=== PATIENT | female | born 1940 | race Caucasian/White ===

== ENCOUNTER 2019-05-31 16:31 | Inpatient (IN) | payer MEDICARE, MEDICAID ==
[~2019-05-31] VITALS: Ht 152.4 cm; Wt 70.5 kg
[~2019-05-31 16:31] MED LIST: ACETAMINOPHEN325 MG PO; ARICEPT10 MG PO; ARICEPT5 MG PO; CARDIZEM60 MG PO; CELEXA20 MG PO; DESERYL100 MG PO; GLUCOPHAGE1000 MG PO; HUMALOG 30100 UNITS/ SC; JANUVIA50 MG PO; LOPRESSOR25 MG PO; MELATONIN 3 MG1 TAB PO; NOVOLOG100 U/M1 SQ; OYST-CAL-5001 TAB PO; Rocephin INJ IM; SEROQUEL25 MG PO; TUMS500 MG PO; VITAMIN B-121000 MCG PO; VITAMIN D31000 UNIT PO; XANAX0.5 MG PO; ZOCOR5 MG PO
--- NOTE | 2019-05-31 16:58 | NUR ---
ATTEMPTED TO CALL [facility] LAWRENCE. NO ANSWER. FACILITY STATED THAT PATIENT CONSENTED TO COME TO FACILITY. PATIENT WAS ASKED TO SIGN PAPERS AND STATED "NO. I AIN'T SIGNING NO PAPERS."
[2019-05-31] MEDS ORDERED: CALCIUM 500 +1 EAC3 (17:51)
[2019-05-31] MEDS ORDERED: CARDIZEM60 MG PO (17:52)
[2019-05-31] MEDS ORDERED: METOPROLOL TART25 MG (17:53)
[2019-05-31] MEDS ORDERED: JANUVIA50 MG (17:53)
[2019-05-31] MEDS ORDERED: GLUCOPHAGE1000 MG (17:53)
[2019-05-31] MEDS ORDERED: MULTI-DAY VITAM1 TAB (17:54)
[2019-05-31] MEDS ORDERED: NOVOLOG100 UNIT/1 (17:57)
[2019-05-31] MEDS ORDERED: REMERON15 MG (17:58)
[2019-05-31] MEDS ORDERED: SEROQUEL25 MG (17:58)
[2019-05-31] MEDS ORDERED: PAXIL CR12.5 MG (17:58)
[2019-05-31] MEDS ORDERED: ZOCOR10 MG (17:58)
[2019-05-31 18:00] VITALS: BP 160/82
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
[2019-05-31 20:17] VITALS: BP 149/74
--- NOTE | 2019-05-31 21:56 | NUR ---
PATIENT IS VERY CONFUSED, ONLY OREINTED TO SELF, CAN FOLLOW BASIC DIRECTIONS, CAN MAKE NEEDS KNOWN, COMPLIANT WITH MEDS. WILL FOLLOW POC
[2019-06-01 07:13] LABS: BASOPHILS 0.6 % (0-2); EOSINOPHILS 5.3 % (0-7); HEMATOCRIT 33.8 % (36.0-48.0); IMMATURE GRANULOCYTES 0.2 % (0-5); LYMPHOCYTES 32.1 % (15-50); MCH 30.1 pg (26.0-34.0); MCHC 32.5 g/dL (31.0-37.0); MCV 92.6 fL (80.0-100.0); MEAN PLATELET VOLUME 11.4 fL (7.4-10.4); MONOCYTES 10.7 % (2-11); NEUTROPHILS 51.1 % (40-80); PLATELET COUNT 146 10x3/uL (130-400); RBC 3.65 10x6/uL (4.00-5.40); RDW 12.7 % (11.5-14.5); WBC 5.1 10x3/uL (4.8-10.8)
[2019-06-01 07:30] VITALS: BP 118/47; BP 180/81
[2019-06-01 07:40] LABS: ALBUMIN 3.6 g/dL (3.4-5.0); ANION GAP 13.4 mmol/L (8-16); BILIRUBIN - TOTAL 0.26 mg/dL (0.2-1.3); CALCIUM 9.3 mg/dL (8.5-10.1); CARBON DIOXIDE 27.5 mmol/L (21.0-32.0); CHOL - HDL RATIO 2.6 ratio (2.3-4.1); CREATININE - SERUM 1.6 mg/dL (0.6-1.3); LDL-HDL RATIO 1.3 ratio (1.5-3.5); POTASSIUM - SERUM 4.9 mmol/L (3.5-5.1); PROTEIN - SERUM 7.5 g/dL (6.4-8.2); THYROID STIMULATING HORMONE 2.12 uIU/mL (0.36-3.74)
[2019-06-01 11:58] VITALS: Ht 152.4 cm; Wt 70.5 kg
--- NOTE | 2019-06-01 14:40 | NUR ---
PATIENT ALERT AND ORIENTED TO SELF ONLY. VERY [place]. CAN MAKE NEEDS KNOWN. CAN AMBULATE AT TIMES. PT COMPLIANT WITH MEDS, ASSESSMENTS AND VITALS. CONFUSION NOTED. NO INAPPROPRIATE BEHAVIOR NOTED. WILL CONT PLAN OF CARE.
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
[2019-06-01 20:00] VITALS: BP 175/74
[2019-06-02 08:11] VITALS: BP 160/62
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
--- NOTE | 2019-06-02 11:29 | NUR ---
B) The patient is awake and alert, she did not want to get up. Did have to call security and she was assisted with CPI skills. I) Provide prescribed meds. R) The patient is compliant with meds. She is in an irritable mood and saying "All people do is lie, the reason they lie is to get more money." Dr. Vee did come see her but she said "I didn't see a psychiatrist, I don't need a psychiatrist." P) Continue POC.
[2019-06-02 20:00] VITALS: BP 144/67
--- NOTE | 2019-06-02 20:40 | NUR ---
RECEIVED IN DAYROOM. SITTING IN A CHAIR WITH PEERS AT HER SIDE. CALM AND COOPERATIVE WITH CARE AND ASSESSMENT. REDIRECT AND REORIENT NEEDED. CONTINUES TO SIT CALMLY IN CHAIR. CONTINUE PLAN OF CARE
[2019-06-03 08:00] VITALS: BP 148/70
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
--- NOTE | 2019-06-03 15:00 | PN ---
PATIENT:HOMER VIDES MEDICAL RECORD: [id number] LOCATION:LAURYN Carmona ADMISSION DATE: 05/31/19 PROGRESS NOTE DATE OF SERVICE: 06/02/2019 SUBJECTIVE: The patient's case was discussed with staff. She has no new complaint. OBJECTIVE: The patient is sleeping and eating reasonably well. She has not been aggressive today. She is only oriented to person. ASSESSMENT: No change in diagnoses. PLAN: Current medicines have been reviewed. Long-term prognosis is guarded. TRANSINT:[id number] Voice Confirmation ID: [id number] DOCUMENT ID: [id number] ISABELLE DUCKWORTH MD at 1500 CC: [id number] DICTATION DATE: 06/02/19 1137 BUILDING EQUIPMENT OPERATOR: 06/02/19 1242 ADM IN [place] [id number] [place] [address]
[2019-06-03 20:20] VITALS: BP 120/59
--- NOTE | 2019-06-03 21:24 | NUR ---
RECEIVED IN DAYROOM. SITTING IN A WHELLCHAIR WITH PEERS AT HER SIDE. SOCIALIZING AT TIMES. CALM AND COOPERATIVE WITH CARE AND ASSESSMENT. REDIRECT AND REORIENT NEEDED. RESTING IN BED WITH EYES CLOSED AT THIS TIME. CONTINUE PLAN OF CARE
[2019-06-04 08:00] VITALS: BP 133/83
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
--- NOTE | 2019-06-04 11:53 | NUR ---
RECEIVED PT IN DINING ROOM FOR B'FAST, ALERT, CALM, COOPERATIVE, CONFUSED, BLUNTED, OCCASIONALLY CURSES AT STAFF. MEDS ADMIN PER ORDERS WITH COMPLETE MED COMPLIANCE NOTED. CONT POC DIRECTED, MONITORING FOR AGITATION AND AGGRESSION.
--- NOTE | 2019-06-04 11:55 | NUR ---
PATIENT AGITATED AT LUNCH TIME, SLINGING HER FOOD ACROSS THE ROOM. CONT TO CURSE UNTIL SHE WAS REMOVED FROM THE GROUP SETTING AND ASSISTED TO DAYROOM. PT CONT TO REFUSE MEAL AND CURSE AND RANT.
--- NOTE | 2019-06-04 13:03 | NUR ---
PATIENT'S ADVERSE BEHAVIOR CONTINUES, CURSING LOUDLY AT STAFF, QUITE AGITATED AND COMBATIVE, THREATENING TO "KOCK THE HELL" OUT OF STAFF. ATIVAN 0.5 MG AND HALDOL 2 MG ADMIN IM FOR ANXIETY. TONY WELL.
--- NOTE | 2019-06-04 16:57 | NUR ---
PATIENT QUITE DISRUPTIVE, CURSING, AGITATED, CURSING, THREW GLUCOMETER ONTO THE FLOOR WHILE NURSE WAS ATTEMPTING TO CHECK BLOOD SUGAR, REFUSING THE PROCEDURE. PT CONT TO CURSE AND RANT. ATIVAN 0.5 MG AND HALDOL 2 MG ADMIN IM FOR ANXIETY. TONY WELL.
--- NOTE | 2019-06-04 18:12 | NUR ---
CALM AND QUIET AT THIS TIME, SITTING IN W/C WATCHING TV.
--- NOTE | 2019-06-04 20:54 | NUR ---
RECEIVED IN DAYROOM. SITTING IN A WHEELCHAIR WITH PEERS AT HER SIDE. SOCIALIZING AT TIMES. CALM AND COOPERATIVE WITH CARE AND ASSESSMENT. ENCOURAGE TO EXPRESS NEEDS. REDIRECT AND REORIENT NEEDED. SITTING QUIETLY AT THIS TIME. CONTINUE PLAN OF CARE
[2019-06-04 21:49] VITALS: BP 138/75
--- NOTE | 2019-06-05 08:30 | NUR ---
PATIENT AWAKE AND ALERT. INCONTINENT OF URINE, VERY DIFFICULT TO REDIRECT WITH HER ADL'S AND CHANGING HER CLOTHES. ARGUMENTATIVE AND NONCOMPLIANT WITH STAFF. COMPLIANT WITH MEDS. CONTINUE POC.
[2019-06-05 10:00] VITALS: BP 172/67
--- NOTE | 2019-06-05 18:58 | PN ---
PATIENT:HOMER VIDES MEDICAL RECORD: [id number] LOCATION:LAURYN Carmona ADMISSION DATE: 05/31/19 PROGRESS NOTE DATE OF SERVICE: 06/04/2019 SUBJECTIVE: The patient's case was discussed with staff. She has no new complaint. OBJECTIVE: The patient denies intent to harm herself or others. She tolerates her medicines well. ASSESSMENT: Dementia. PLAN: The patient is yelling less. She is eating better. Current medicines will be maintained and I anticipate she can be transitioned out of the hospital and to a penitentiary soon. TRANSINT:[id number] Voice Confirmation ID: [id number] DOCUMENT ID: [id number] ISABELLE DUCKWORTH MD at 1858 CC: [id number] DICTATION DATE: 06/04/19 1039 DIRECTOR IT PROJECT: 06/04/19 1306 ADM IN [facility] [address] [place] [address]
[2019-06-05 21:10] VITALS: BP 166/60
--- NOTE | 2019-06-05 21:55 | NUR ---
PATIENT IS LYING IN BED TOOK MEDS WITHOUT DIFFICULY, PATIENT WAS TALKING ABOUT HER BOYFRIEND THAT FLIES AIRPLANES AND HE MAKES GOOD MONEY, HOWEVER RECEIVED IN REPORT THAT HER BEHAVIOR WAS BETTER TODAY THAN THE PREVIOUS DAYS. WILL FOLLOW POC
[2019-06-06 09:41] VITALS: BP 170/76
--- NOTE | 2019-06-06 10:30 | NUR ---
PATIENT IS PROPELLING SELF IN WHEELCHAIR. RESP EVEN AND NONLABORED. NO ACUTE DISTRESS NOTED. PT VERY ASSINIBOINE AND [place]. PT ALERT AND ORIENTED TO SELF ONLY. PT COMPLIANT WITH MEDICATIONS, ASSESSMENTS AND ADL'S. PT DOES NOT LIKE TO GET UP IN THE A.M. YELLS AT STAFF AT TIMES. WILL CONT PLAN OF CARE.
--- NOTE | 2019-06-06 10:54 | NUR ---
NUTRITION F/U TOLERATING DIABETIC DIET WITH GOOD INTAKE RECENT MEALS. WT HAS BEEN STABLE. WILL CONTINUE TO PROVIDE DIABETIC DIET, MONITOR PO INTAKE AND WT. RD FOLLOWING
--- NOTE | 2019-06-06 13:52 | PN ---
PATIENT:HOMER VIDES MEDICAL RECORD: [id number] LOCATION:LAURYN Carmona ADMISSION DATE: 05/31/19 PROGRESS NOTE DATE OF SERVICE: 06/05/2019 SUBJECTIVE: The patient's case was discussed with staff. She has no new complaint. OBJECTIVE: The patient is eating reasonably well and she is sleeping reasonably well. She is not yelling as much as she has been previously and is much more redirectable. ASSESSMENT: Dementia. PLAN: Current medicines have been reviewed and will be maintained. If this level of improvement continues, she can reasonably be transitioned out of the hospital soon. TRANSINT:[id number] Voice Confirmation ID: [id number] DOCUMENT ID: [id number] ISABELLE DUCKWORTH MD at 1352 CC: [id number] DICTATION DATE: 06/05/192007 MEDICAL ASSISTING PROGRAM DIRECTOR: 06/06/19 0116 ADM IN [place] [id number] [place] [address]
--- NOTE | 2019-06-06 19:25 | NUR ---
REC'D SITTING IN THE DAYROOM WITH HEAD LAYING ON TABLE. WHEN TRIED TO TALK WITH PATIENT SHE REPLIED "WHAT YOU WANT ME TO DO NOW? I'M TIRED. I'M DIABETIC." PATIENT HAD BEEN OBSERVED CALLING FOR "JIM." RELATES THAT IS HER BOYFRIEND AND THEY ARE GETTING . PARIENT IS LABILE. WILL SMILE AND TALK WITH STAFF THEN CAN BECOME ANGRY AND CURSE. ADMINSITER MEDS AND MONITOR COMPLIANCE. REORIENT NEEDED. MED COMPLIANT. REORIENTS HOWEVER IS FORGETFUL AND DOES NOT RETAIN INFORMATION.CONTINUE POC AND PROVIDE SAFE ENVIRONMENT.
[2019-06-06 20:05] VITALS: BP 136/68
--- NOTE | 2019-06-07 08:04 | NUR ---
B) The patient is still laying in bed, she doesn't like to get up and she fusses and curses a lot when she is awake. She can not hear at all and she does not read well enough to follow direction. She self propels in a w/c. I) Provide prescribed meds. R) Monitor her mood as she can be irritable and aggressive at times. P) Continue POC.
[2019-06-07 09:33] VITALS: BP 158/74
--- NOTE | 2019-06-07 15:52 | PN ---
PATIENT:HOMER VIDES MEDICAL RECORD: [id number] LOCATION:LAURYN Carmona ADMISSION DATE: 05/31/19 PROGRESS NOTE DATE OF SERVICE: 06/06/2019 SUBJECTIVE: The patient's case was discussed with staff. She has no new complaint. The patient denies intent to harm herself or others. She tolerates her medicines well. OBJECTIVE: The patient is in good behavioral control with poor insight about her condition. ASSESSMENT: No change in diagnoses. PLAN: Current medicines have been reviewed and will be maintained. Long-term prognosis is guarded. TRANSINT:[id number] Voice Confirmation ID: [id number] DOCUMENT ID: [id number] ISABELLE DUCKWORTH MD at 1552 CC: [id number] DICTATION DATE: 06/06/19 1543 SALES PLANNER: 06/06/19 1600 ADM IN [place] [address] [place] [id number]
[2019-06-07 20:58] VITALS: BP 138/70
--- NOTE | 2019-06-08 01:29 | NUR ---
B) Patient is alert and oriented to person, cooperative and friendly toward staff I) Administered scheduled medications as ordered, monitored for needs and for safety R) Mediation compliant, pleasant and friendly P) Continue plan of care.
[2019-06-08 09:19] VITALS: BP 105/63
--- NOTE | 2019-06-08 12:02 | PN ---
PATIENT:HOMER VIDES MEDICAL RECORD: [id number] LOCATION:LAURYN Carmona ADMISSION DATE: 05/31/19 PROGRESS NOTE DATE OF SERVICE: 06/07/2019 SUBJECTIVE: The patient's case was discussed with staff. She has no new complaint. OBJECTIVE: The patient denies intent to harm herself or others. She tolerates her medicines well. She is not yelling as much as she previously was. TRANSINT:[id number] Voice Confirmation ID: [id number] DOCUMENT ID: [id number] ISABELLE DUCKWORTH MD at 1202 CC: [id number] DICTATION DATE: 06/07/19 165 PALEONTOLOGY TEACHER: 06/07/192056 ADM IN [place] [id number] [place] [id number]
--- NOTE | 2019-06-08 17:06 | NUR ---
PATIENT STILL LYING IN BED, DOES NOT WANT TO GET UP AND OUT OF BED. FUSSES AND ARGUES WITH STAFF. WAKES UP IN GRUMPY MOOD. LATER SHE GETS IN BETTER ATTITUDE. COOPERATIVE WITH ASSESSMENT AND CARE. COMPLIANT WITH MEDS. REDIRECT AND REORIENT NEEDED.
[2019-06-08 20:00] VITALS: BP 136/75
--- NOTE | 2019-06-09 01:36 | NUR ---
B.) PT IS ALERT AND ORIENTED TO SELF AND SITUATION. ABLE TO MAKE NEEDS KNOWN. AMBULATES WITH WHEELCHAIR BUT CAN STAND TO TRANSFER. PT IS PLEASANT AND LAUGHING WITH STAFF AND PEERS. I.) PROVIDED PM MEDICATION. R.) COMPLIANT WITH ALL MEDICATIONS. P.) CONTINUE PLAN OF CARE
[2019-06-09 09:51] VITALS: BP 122/60
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
[2019-06-09 20:00] VITALS: BP 138/59
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
--- NOTE | 2019-06-10 00:13 | NUR ---
PT IS PHYSICALLY AGGRESSIVE WITH STAFF AND KICKING DOOR TO THE NURSES STATION. SHE IS YELLING OBSCENITIES AND CUSSING AT STAFF. PT RECIEVED 0.5MG OF ATIVAN IM. WILL CONTINUE TO MONITOR.
[2019-06-10 07:00] VITALS: BP 111/69
--- NOTE | 2019-06-10 15:51 | PN ---
PATIENT:HOMER VIDES MEDICAL RECORD: [id number] LOCATION:LAURYN Carmona ADMISSION DATE: 05/31/19 PROGRESS NOTE DATE OF SERVICE: 06/09/2019 SUBJECTIVE: The patient's case was discussed with staff. She has no new complaint. OBJECTIVE: The patient has been disruptive, agitated and combative with staff. She has very limited insight about her situation. She is only oriented to person. ASSESSMENT: No change in diagnoses. PLAN: The patient will be treated with Trilafon at a dose of 2 mg at bedtime. Her long-term prognosis is guarded. TRANSINT:[id number] Voice Confirmation ID: [id number] DOCUMENT ID: [id number] ISABELLE DUCKWORTH MD at 1551 CC: [id number] DICTATION DATE: 06/09/19 0941 CERTIFIED REGISTERED DENTAL ASSISTANT: 06/09/19 1515 ADM IN [place] [id number] [place] [id number]
--- NOTE | 2019-06-10 15:51 | PN ---
PATIENT:HOMER VIDES MEDICAL RECORD: [id number] LOCATION:LAURYN Carmona ADMISSION DATE: 05/31/19 PROGRESS NOTE DATE OF SERVICE: 06/08/2019 SUBJECTIVE: The patient's case was discussed with staff. She has no new complaint. OBJECTIVE: The patient is yelling less frequently. She has not been aggressive with staff except during personal care. She is eating reasonably well and she is compliant with medications. ASSESSMENT: Dementia. PLAN: Supportive and educational interventions were made. Current medications have been reviewed. Long-term prognosis is guarded. TRANSINT:[id number] Voice Confirmation ID: [id number] DOCUMENT ID: [id number] ISABELLE DUCKWORTH MD at 1551 CC: [id number] DICTATION DATE: 06/08/19 1246 FLOOR SWEEPER: 06/08/19 1453 ADM IN [place] [id number] [place] [address]
[2019-06-10 20:49] LABS: ALBUMIN 3.7 g/dL (3.4-5.0); ANION GAP 12.4 mmol/L (8-16); BILIRUBIN - TOTAL 0.21 mg/dL (0.2-1.3); CALCIUM 9.5 mg/dL (8.5-10.1); CARBON DIOXIDE 29.9 mmol/L (21.0-32.0); CREATININE - SERUM 1.7 mg/dL (0.6-1.3); POTASSIUM - SERUM 5.3 mmol/L (3.5-5.1); PROTEIN - SERUM 7.7 g/dL (6.4-8.2); THYROID STIMULATING HORMONE 1.63 uIU/mL (0.36-3.74)
--- NOTE | 2019-06-11 02:32 | NUR ---
REC'D IN DAYROOM. MOBILE IN WHEELCHAIR. UNCOOPERATIVE WITH STAFF WHEN TRYING TO GIVE HER A SHOWER. YELLING AND ARGUING WITH STAFF THAT SHE WANTS OUT OF HERE. RELATES SHE IS IN THE CRAZY HOUSE AND SHE WANTS OUT AND GO BACK TO HER [facility] TO JIM HER BOYFRIEND. RELATES THEY ARE GETTING AND HE FLIES AIRPLANES AND MAKES GOOD MONEY BUT SHE TOLD HIM SHE DIDN'T CARE ABOUT HIS MONEY. RED RASH NOTED TO HER LOWER ARMS AND HANDS. ADMINISTER MEDS PER ORDERS Q SHIFT AND MONITOR COMPLIANCE. REDIRECT FOR DISRUPTIVE BEHAVIOR. MED COMPLIANT. INCONSISTENT WITH FOLLOWING REDIRECTION. POOR IMPULSE CONTROL. DOES NOT LIKE TO FOLLOW UNIT MILEU. CONTINUE POC AND PROVIDE SAFE ENVIRONMENT.
[2019-06-11 10:37] VITALS: BP 127/77
--- NOTE | 2019-06-11 12:36 | PN ---
PATIENT:HOMER VIDES MEDICAL RECORD: [id number] LOCATION:LAURYN Carmona ADMISSION DATE: 05/31/19 PROGRESS NOTE DATE OF SERVICE: 06/10/2019 SUBJECTIVE: The patient's case was discussed with staff. She has no new complaint. OBJECTIVE: The patient is in reasonable behavioral control, but apparently has developed some tremors that is probably associated with the Trilafon, which I shall discontinue. In addition to this, she has been agitated at times and disruptive. When asked about this, she really cannot give any explanation. ASSESSMENT: No change in diagnoses. PLAN: Current medicines have been reviewed and will be maintained. Long-term prognosis is guarded. TRANSINT:[id number] Voice Confirmation ID: [id number] DOCUMENT ID: [id number] ISABELLE DUCKWORTH MD at 1236 CC: [id number] DICTATION DATE: 06/10/19 1649 CONTACT PRINTER DRY FILM: 06/10/19 1836 ADM IN [place] [id number] [place] [id number]
--- NOTE | 2019-06-11 17:00 | NUR ---
PATIENT IS ALERT AND ARGUMENTATIVE WITH STAFF AND PEERS. SHE CURSES A LOT. SHE IS INTRUSIVE AND GETS INTO EVERYTHING. MEDICATION COMPLIANT. WILL CONTINUE PLAN OF CARE.
[2019-06-11 22:45] VITALS: BP 127/53
--- NOTE | 2019-06-12 01:58 | NUR ---
B) Patient is alert and oriented to person and place, argument and restless at time, anxious and exit seeking I) Administered scheduled medications as ordered, PRN Ativan 0.5 mg IM given for anxiety R) Mediation compliant, sleeping quietly in her bed, P)Continue plan of care.
--- NOTE | 2019-06-12 09:00 | NUR ---
PATIENT IS AWAKE AND ALERT TO PERSON ONLY. NO AGGRESSIVE BEHAVIORS THIS MORNING. CALM AND COOPERATIVE WITH Staff AND ASSESSMENT. MEDICATION COMPLIANT. FALL PRECAUTIONS IN PLACE. WILL CONTINUE POC.
[2019-06-12 09:01] VITALS: BP 157/87
--- NOTE | 2019-06-12 15:30 | PN ---
PATIENT:HOMER VIDES MEDICAL RECORD: [id number] LOCATION:LAURYN Carmona ADMISSION DATE: 05/31/19 PROGRESS NOTE DATE OF SERVICE: 06/11/2019 SUBJECTIVE: The patient's case was discussed with staff. She has no new complaint. OBJECTIVE: The patient is in good behavioral control with limited insight about her condition. She tolerates her medicines well. ASSESSMENT: No change in diagnoses. PLAN: Current medicines have been reviewed and will be maintained. Long-term prognosis is guarded. TRANSINT:[id number] Voice Confirmation ID: [id number] DOCUMENT ID: [id number] ISABELLE DUCKWORTH MD at 1530 CC: [id number] DICTATION DATE: 06/11/19 1306 ENVIRONMENTAL HEALTH SAFETY MANAGER: 06/11/19 1316 ADM IN [place] [address] [place] [address]
[2019-06-12 19:42] VITALS: BP 132/60
--- NOTE | 2019-06-12 21:00 | NUR ---
PT COMBATIVE, HITTING STAFF AND PEER. SHE IS THROWING HER SHOES AND YELLING AT STAFF. GAVE PRN OF 0.5 MG ATIVAN IM WILL CONTINUE TO MONITOR.
--- NOTE | 2019-06-12 21:47 | NUR ---
PT APPEARS LESS ANXIOUS. WILL CONTINUE TO MONITOR.
[2019-06-13 08:32] VITALS: BP 146/62
--- NOTE | 2019-06-13 11:02 | NUR ---
NUTRITION F/U 1# WT GAIN NOTED. PT IS CONSUMING 85% OF RECENT DIABETIC MEALS. WILL CONTINUE TO PROVIDE DIET, MONITOR PO INTAKE AND WT. RD FOLLOWING
--- NOTE | 2019-06-13 13:34 | PN ---
PATIENT:HOMER VIDES MEDICAL RECORD: [id number] LOCATION:LAURYN DacostaDenys112 ADMISSION DATE: 05/31/19 PROGRESS NOTE DATE OF SERVICE: 06/12/2019 SUBJECTIVE: The patient's case was discussed with staff. She has no new complaint. OBJECTIVE: The patient is very disorganized. She required p.r.n. medication for agitation yesterday. It was somewhat effective. ASSESSMENT: No change in diagnoses. PLAN: Current medicines have been reviewed and will be maintained. Long-term prognosis is guarded. TRANSINT:[id number] Voice Confirmation ID: [id number] DOCUMENT ID: [id number] ISABELLE DUCKWORTH MD at 1334 CC: [id number] DICTATION DATE: 06/12/19 1650 CURATOR OF COLLECTIONS: 06/13/19 0019 ADM IN [facility] [address] [place] [address]
--- NOTE | 2019-06-13 13:34 | PN ---
PATIENT:HOMER VIDES MEDICAL RECORD: [id number] LOCATION:LAURYN Carmona ADMISSION DATE: 05/31/19 PROGRESS NOTE DATE OF SERVICE: 06/12/2019 SUBJECTIVE: The patient's case was discussed with staff. She has no new complaint. OBJECTIVE: The patient denies intent to harm herself or others. She is tolerating her medicines well. ASSESSMENT: Dementia. PLAN: Current medicines have been reviewed and will be maintained. Long-term prognosis is guarded. TRANSINT:[id number] Voice Confirmation ID: [id number] DOCUMENT ID: [id number] ISABELLE DUCKWORTH MD at 1334 CC: [id number] DICTATION DATE: 06/12/19 1652 DIRECTOR INSURANCE: 06/13/19 0024 ADM IN [place] [id number] [place] [address]
--- NOTE | 2019-06-13 19:13 | NUR ---
PATIENT CONTS TO YELL OUT AND BE VERBALLY AGGRESIVE WITH STAFF. NOT COMBATIVE. PT CONTINUES TO SEEK MALE ATTENTION. STAFF KEEPS HER WITH MALE STAFF. PT CONTS TO HAVE INCONTIENT EPISODES.
[2019-06-13 20:20] VITALS: BP 130/65
--- NOTE | 2019-06-14 02:46 | NUR ---
B.) PT IS ALERT AND ORIENTED TO SELF ONLY. PT IS CALM AND COOPERATIVE. PT IS ABLE TO MAKE NEEDS KNOWN. SHE YELLS OUT OCCASIONALLY WHEN SHE IS SEEKING ATTENTION. I.) PROVIDED PM MEDICATIONS. REDIRECT OFTEN. R.) COMPLIANT WITH ALL MEDICATIONS. PT VERBALIZES UNDERSTANDING. P.) CONTINUE PLAN OF CARE
--- NOTE | 2019-06-14 09:00 | NUR ---
PATIENT REFUSED TO GET OUT OF BED. STAFF 2X TO GET UP AFTER MULTIPLE ATTEMPTS. PATIENT IS VERY [place]. PATIENT COMPLIANT WITH ASSESSMENTS, VITALS AND MEDICATIONS. PT IS INCONTIENT AT TIMES. ATTEMPTS TO BE COMBATIVE WITH STAFF AT [place]. CHAIR ALARM IN PLACE AND ACTIVE.
[2019-06-14 09:36] VITALS: BP 120/64
[2019-06-14 15:08] LABS: ANION GAP 14.7 mmol/L (8-16); CALCIUM 9.4 mg/dL (8.5-10.1); CARBON DIOXIDE 28.5 mmol/L (21.0-32.0); CREATININE - SERUM 2.4 mg/dL (0.6-1.3)
[2019-06-14 15:11] LABS: POTASSIUM - SERUM 6.2 mmol/L (3.5-5.1)
--- NOTE | 2019-06-14 15:15 | NUR ---
LAB CALLED WITH A CRITICAL LAB; POTASSIUM 6.2. NOTIFIED LISSETH BELTRE APN. NEW ORDER: KAYEXELATE 30 GM ONE TIME ORDER. D/C: CELEXA 10 MG, DESERYL 100 MG, METFORMIN 1,000 MG, JANUVIA 50 MG. PATIENT TOLERATED WELL. PATIENT LAB BLOOD SUGAR 349 MG/DL. 8 UNITS OF UNITS GIVEN. WILL CONT TO MONITOR BLOOD SUGAR.
--- NOTE | 2019-06-14 16:01 | NUR ---
BLOOD SUGAR: 242 MG/DL. PATIENT RECIEVED INSULIN PRIOR TO 2 BLOOD SUGAR CHECK.
--- NOTE | 2019-06-14 17:48 | NUR ---
DR. ARAUJO CALLED FOR A ONE TIME ORDER FOR TRAZADONE 100 MG PO HS. ORDER IN COMPUTER FOR THIS P.M.
--- NOTE | 2019-06-14 20:20 | NUR ---
PATIENT IS CONFUSED, DEFIANT, COMBATIVE AND DEMANDING AT TIMES, SEXUALLY INAPPROPRIATE, COMPLIANT WITH MEDS. NEEDS HELP WIHT ADL'S. WILL FOLLOW POC
[2019-06-14 21:26] VITALS: BP 127/39
[2019-06-15 06:47] LABS: ANION GAP 11.4 mmol/L (8-16); CALCIUM 9.4 mg/dL (8.5-10.1); CARBON DIOXIDE 28.7 mmol/L (21.0-32.0)
[2019-06-15 06:48] LABS: POTASSIUM - SERUM 5.1 mmol/L (3.5-5.1)
--- NOTE | 2019-06-15 07:48 | NUR ---
B) The patient does not like to get up in the am and she gives the techs a hard time and curses and them and calls them expletive names that are inappropriate. She is UNGA and she is extremely difficult to redirect. She needs assistance with toileting and dressing. She self propels in a w/c and she does take her pills whole usually, but she needs a lot of prompting. She continues to talk about her boyfriend and she says "I'm not going to find a man here, they're all nuts." But she does try to flirt and talk with all of the men and sometimes she gets agitated with them because she can not hear them. I) Provide prescribed meds. R) The patient needs much redirection and monitoring d/t her confusion and irritability. P) Continue POC.
[2019-06-15 16:39] LABS: APPEARANCE CLOUDY (CLEAR); COLOR YELLOW (YELLOW); NITRITE POSITIVE (NEGATIVE); PROTEIN TRACE mg/dL (NEGATIVE)
[2019-06-15 16:40] LABS: BILIRUBIN NEGATIVE (NEGATIVE); GLUCOSE 1000 mg/dL (NEGATIVE); KETONE NEGATIVE (NEGATIVE); UROBILINOGEN NORMAL (NORMAL)
--- NOTE | 2019-06-15 16:42 | NUR ---
PATIENT CONTS TO PULL SHIRT UP IN FRONT OF MALE PATIENTS. STAFF REDIRECTS MULTIPLE TIMES.
[2019-06-15 17:02] LABS: RED CELLS - URINE 0-5 /hpf (0-5); WHITE CELLS - URINE >50 /hpf (NEGATIVE)
[2019-06-15 17:03] LABS: BACTERIA MANY /hpf (NEGATIVE)
--- NOTE | 2019-06-15 17:30 | NUR ---
PATIENT URINE COLLECTED THIS SHIFT. 432 MG/DL BLOOD SUGAR. CALLED JUVENCIO MCKENNA CALLBACK. CRITICAL LAB SHEET COMPLETED AND ORDER IN COMPUTER FOR STAT LAB. 12 UNITS OF INSULIN GIVEN.
--- NOTE | 2019-06-15 18:13 | NUR ---
LAB CALLED TO REPORT THAT PATIENT BLOOD GLUCOSE WAS: 455 MG/DL. AWAITING CALLBACK FROM Rox SKAGGS APN. WAS COVERED BY INSULIN. WILL RECHECK.
--- NOTE | 2019-06-15 19:02 | NUR ---
SPOKE WITH Rox SKAGGS APN IN REGARDS TO CRITICAL LABS GLUCOSE. REPORTED URINE LAB WELL. NEW ORDER: 1/2 NS AT 125/HR, CBC ADDED TO AM LAB, ROCEPHIN 1 GM IM QD X 3 DAYS. WILL PASS TO ONCOMING SHIFT.
[2019-06-15 19:05] VITALS: BP 174/70
[2019-06-15 20:36] VITALS: BP 130/56
--- NOTE | 2019-06-15 21:40 | NUR ---
PATIENT IS CONFUSED, ARGUMENTATIVE, DEMANDING AND LABILE. COMPLIANT WITH MEDS. CAN MAKE NEEDS KNOWN. WILL FOLLOW POC
[2019-06-16 06:28] LABS: BASOPHILS 0.3 % (0-2); EOSINOPHILS 4.5 % (0-7); HEMATOCRIT 33.4 % (36.0-48.0); HEMOGLOBIN 10.9 g/dL (12-16); IMMATURE GRANULOCYTES 0.2 % (0-5); LYMPHOCYTES 23.9 % (15-50); MCH 30.1 pg (26.0-34.0); MCHC 32.6 g/dL (31.0-37.0); MCV 92.3 fL (80.0-100.0); MEAN PLATELET VOLUME 11.5 fL (7.4-10.4); NEUTROPHILS 60.1 % (40-80); PLATELET COUNT 162 10x3/uL (130-400); RBC 3.62 10x6/uL (4.00-5.40); RDW 12.6 % (11.5-14.5); WBC 6.2 10x3/uL (4.8-10.8)
[2019-06-16 07:20] LABS: ANION GAP 12.9 mmol/L (8-16); CALCIUM 9.3 mg/dL (8.5-10.1); CARBON DIOXIDE 28.1 mmol/L (21.0-32.0); CREATININE - SERUM 2.2 mg/dL (0.6-1.3)
[2019-06-16 08:00] VITALS: BP 127/56
--- NOTE | 2019-06-16 09:00 | NUR ---
PATIENT SITTING AT TABLE EATING BREAKFAST. NO ACUTE DISTRESS NOTED. PT CONFUSED AND ORIENTED TO SELF ONLY. VERY HARD OF HEARING. PT HAS IV TO RIGHT AC WITH 1/2 NS AT 125 ML. PT INTIAL DOSE OF RECEPHIN 1 GM IM FOR UTI. PT TOLERATING WELL. PT COMPLIANT WITH MEDS, ASSESSMENTS AND VITALS. 1X ASSIST WITH ADLS. CHAIR ALARM IN PLACE AND ACTIVE. WILL CONT PLAN OF CARE.
--- NOTE | 2019-06-16 15:30 | NUR ---
NURSE TOOK PATIENT IV OUT IN THE RIGHT AC. 22 G IV PUT IN THE LEFT FOREARM. PT TOLERATED WELL. IV FLUIDS RESTARTED. PT COMPLIES WITH IV AND TAKES MEDICATIONS. CATH REMOVED IS INTACT AND WHOLE.
--- NOTE | 2019-06-16 20:04 | NUR ---
RECEIVED IN DAYROOM BATHROOM. GETTING READY TO GET A SHOWER. CONFUSED BUT COOPERATIVE WITH CARE AND ASSESSMENT. IV INFUSING. REDIRECT AND REORIENT NEEDED. [facility] HAS HER IN SHOWER AT THIS TIME. CONTINUE PLAN OF CARE
[2019-06-16 22:48] VITALS: BP 145/63
[2019-06-17 08:00] VITALS: BP 153/47
[2019-06-17 08:15] LABS: ANION GAP 11.8 mmol/L (8-16); CALCIUM 8.9 mg/dL (8.5-10.1); CARBON DIOXIDE 28.5 mmol/L (21.0-32.0); POTASSIUM - SERUM 5.3 mmol/L (3.5-5.1)
[2019-06-17 08:16] LABS: CREATININE - SERUM 1.6 mg/dL (0.6-1.3)
--- NOTE | 2019-06-17 17:29 | NUR ---
RECEIVED PT IN DINING ROOM FOR B'FAST, ALERT, CALM, COOPERATIVE. MEDS ADMIN PER ORDERS WITH COMPLETE MED COMPLIANCE NOTED. PER INSTRUCTIONS FROM Rox SKAGGS APN, IV FLUIDS CAN BE RESERVED FOR BEDTIME HOURS IF PATIENT PERSISTS IN BECOMING AGITATED ABOUT THE TUBING, PUMP, ETC DUE TO HER MOBILE ACTIVITY. CONT POC DIRECTED.
[2019-06-17 20:23] VITALS: BP 183/84
--- NOTE | 2019-06-17 21:55 | NUR ---
RECEIVED IN DAYROOM. MOVING ABOUT IN WHEELCHAIR., SOCIALIZING WITH STAFF AND PEERS AT TIMES. REDIRECT AND REORIENT NEEDED. CONTINUES TO MOVE ABOUT IN HER WHEELCHAIR. CONTINUE PLAN OF CARE
[2019-06-18 06:55] LABS: ANION GAP 11.6 mmol/L (8-16); CARBON DIOXIDE 29.5 mmol/L (21.0-32.0); CREATININE - SERUM 1.8 mg/dL (0.6-1.3); POTASSIUM - SERUM 5.1 mmol/L (3.5-5.1)
[2019-06-18 08:00] VITALS: BP 114/63
--- NOTE | 2019-06-18 10:00 | NUR ---
RECEIVED PATIENT IN DINING ROOM FOR B'FAST, ALERT, RESTLESS, SEXUALLY INAPPROPRIATE WITH MALES, ARGUMENTATIVE WITH MEDS, APPETITE GOOD. CURSES QUITE OFTEN, AMBULATES IN W/C, VERBALLY AGGRESSIVE WITH CARE.
[2019-06-18 20:10] VITALS: BP 156/51
--- NOTE | 2019-06-18 20:35 | NUR ---
RECEIVED IN DAYROOM. SITTING IN WHEELCHAIR SOCIALIZING WITH A PEER. CALM AND COOPERAIVE WITH CARE AND ASSESSMENT. NOT BEING SEXUALLY INAPPROPRIATE THE PM. REDIRECT AND REORIENT THIS EVENING. CONTINUES TO BE SOCIAL WITH PEERS. CONTINUE PLAN OF CARE
--- NOTE | 2019-06-19 03:20 | NUR ---
IV OUT. NEW IV STARTED X 1 ATTEMPT. LEFT FOREARM. / NS @ 125 STARTED BACK.
[2019-06-19 07:05] LABS: BASOPHILS 0.8 % (0-2); EOSINOPHILS 5.8 % (0-7); HEMATOCRIT 29.6 % (36.0-48.0); HEMOGLOBIN 9.7 g/dL (12-16); IMMATURE GRANULOCYTES 0.4 % (0-5); LYMPHOCYTES 34.4 % (15-50); MCH 30.5 pg (26.0-34.0); MCHC 32.8 g/dL (31.0-37.0); MCV 93.1 fL (80.0-100.0); MEAN PLATELET VOLUME 11.7 fL (7.4-10.4); MONOCYTES 10.7 % (2-11); NEUTROPHILS 47.9 % (40-80); PLATELET COUNT 174 10x3/uL (130-400); RBC 3.18 10x6/uL (4.00-5.40); RDW 13.3 % (11.5-14.5); WBC 5.2 10x3/uL (4.8-10.8)
[2019-06-19 07:25] LABS: ANION GAP 13.2 mmol/L (8-16); CALCIUM 9.4 mg/dL (8.5-10.1); CARBON DIOXIDE 27.2 mmol/L (21.0-32.0); CREATININE - SERUM 1.7 mg/dL (0.6-1.3); POTASSIUM - SERUM 5.4 mmol/L (3.5-5.1)
--- NOTE | 2019-06-19 17:00 | NUR ---
RENAL ULTRASOUND DONE IN PATIENTS ROOM.
--- NOTE | 2019-06-19 17:08 | NUR ---
RECEIVED PT IN DINING ROOM FOR B'FAST, ALERT, CALM, SEXUALLY INAPPROPRIATE, MEDS ADMIN PER ORDERS WTIH COMPLETE MED COMPLIANCE NOTED. CONT POC DIRECTED.
[2019-06-19 20:55] VITALS: BP 142/67
--- NOTE | 2019-06-20 00:05 | NUR ---
REC'D MOBILE IN WHEELCHAIR IN THE DAYROOM. LABILE AND WILL TALK AT TIMES BUT THEN WILL YELL AND CURSE AT STAFF. SEXUALLY INAPPROPRIATE. OBSERVED TAKING A PEERS HAND AND KISSING IT. PREOCCUPIED WITH FETTING OUT OF HERE. BECOMES ANGRY WHEN TOLD SHE HAS TO BE CLEARED BY THE DOCTOR BEFORE SHE CAN BE DISCHARGED. ADMINISTER MEDS PER ORDERS Q SHIFT AND MONITOR COMPLIANCE. REDIRECT FOR INAPPROPRIATE BEHAVIOR. MED COMPLIANT BUT WILL COMPLAIN. POOR REDIRECTION AEB CURSING STAFF AND TRYING TO GET BY STAFF IN HER WHEELCHAIR TO GET TO A MALE PEER. IV INITIATED AT 125CC/HR PER ORDERS TO RUN AT NIGHT VIA LEFT FOREARM SALINE LOCK. CONTINUE POC AND PROVIDE SAFE ENVIRONMENT.
[2019-06-20 08:05] LABS: ANION GAP 14.7 mmol/L (8-16); CALCIUM 9.2 mg/dL (8.5-10.1); CARBON DIOXIDE 26.5 mmol/L (21.0-32.0); CREATININE - SERUM 1.7 mg/dL (0.6-1.3); POTASSIUM - SERUM 5.2 mmol/L (3.5-5.1)
--- NOTE | 2019-06-20 09:20 | NUR ---
PATIENT WAS VERY SEXUALLY INAPPROPRIATE WITH STAFF AND PEERS. PT KEPT ASKING FOR HER SHOES WHEN NOT MAKING COMPLIANTS TO THE GENTLEMAN. ATTEMPTED TO REDIRECT AND PT BECAME ANGRY. SHE STARTED JERKING AWAY FROM STAFF YELLING OUT" THIS IS SOME BULLSHIT! WE WERE JUST TALKING." HAVE TO SEPARATE MUTIPLE TIMES. PT IS VERY LABILE. COMPLIANT WIHT MEDS, VITALS AND ASSESSMENT. PT CONT ON IM ANTIBIOTIC FOR UTI. TOLERATING WELL. NO S/SX NOTED. ATIVAN 0.5 MG PO GIVEN PER DR. DUCKWORTH ORDER.
[2019-06-20 09:26] VITALS: BP 141/66
--- NOTE | 2019-06-20 10:20 | NUR ---
PRN EFFECTIVE AT THIS TIME. PT IS VERY FRIENDLY WITH STAFF AND PEERS. MAKING JOKES AT THIS TIME.
--- NOTE | 2019-06-20 10:48 | NUR ---
NUTRITION F//U PT TOLERATING ADA DIET WITH 100% INTAKE RECENT MEALS. ~ 3# WT GAIN SINCE ADMIT. WILL CONTINUE TO PROVIDE DIET, MONITOR PO INTAKE AND WT. RD FOLLOWING
[2019-06-20 20:01] VITALS: BP 148/66
--- NOTE | 2019-06-20 22:31 | NUR ---
REC'D PT MOBILE ON THE UNIT IN HER WHEELCHAIR. INTRUSSIVE AND SEXUALLY INPPROPRIATE. DOES NOT WANT TO FOLLOW UNIT MILEU AND BECOMES ANGRY WHEN DIRECTED BY STAFF. NO INSIGHT INTO THE REASON FOR HOSPITALIZATION. PATIENT RELATED TO A MALE PEER THAT SHE IS GONG TO TWO MEN TONIGHT. ADMINISTER MEDS PER ORDERS Q SHIFT AND MONITOR COMPLIANCE. ADMINISTER MEDS Q SHIFT PER ORDERS AND MONITOR COMPLIANCE. REDIRECT FOR SEXUALLY INAPPROPRIATE BEHAVIOR AND INTRUSSIVENESS. MED COMPLIANT. POOR REDIRECTION AND BECOMES ANGRY CURSING AND YELLING WITH NO INSIGHT FOR REASONING,
--- NOTE | 2019-06-21 07:33 | NUR ---
B) The patient is awake and she is loud, yelling and cursing. She does not like to get up and now she is mumbling profanities under her breath as she self propels in the hallway. I) Provide prescribed meds. R) The patient is compliant with meds. She needs much redirection for appropriate behavior but it is difficult because she is unable to hear even if staff speak loudly in her ear as she requests. P) Continue POC.
[2019-06-21 08:30] VITALS: BP 145/79
--- NOTE | 2019-06-21 11:30 | NUR ---
Checked the patient's fsbs it is 558, called Dr. Alas and let her be aware, told I would recheck it and call lab for a stat glucose. She said "Provide the insulin as indicated and I will address it further when I come in shortly." The patient is not having any symptoms but she says she is really tired. Rechecked her fsbs and it is 522, provided 12 units Humalog.
--- NOTE | 2019-06-21 12:30 | NUR ---
RECIEVED CRITICAL RESULT FROM LAB. WILL NOTIFTY DOCTOR.
--- NOTE | 2019-06-21 17:01 | NUR ---
CONTACTED DR. LEON ABOUT PATIENT'S FSBS, SHE WANTS US TO CHECK HER FSBS Q 4HOURS. ORDERS IN THE COMPUTER.
[2019-06-21 20:00] VITALS: BP 126/60
--- NOTE | 2019-06-21 23:47 | NUR ---
B.) PT IS ALERT AND ORIENTED TO SELF AND SITUATION. SHE IS RECIEVED IN HER WHEELCHAIR. SHE IS SOCIALIZING WITH PEERS AND IS EAGER TO GO TO BED. SHE IS AT TIME DIFFICULT TO REDIRECT. I.) PROVIDED PM MEDICATIONS. R.) COMPLIANT WITH ALL MEDICATIONS. P.) CONTINUE PLAN OF CARE
--- NOTE | 2019-06-22 07:26 | NUR ---
B) The patient awakens and she is fiesty. She screams and yells. She is MENTASTA and she does not understand what staff tell her. She self propels in her w/c. Currently she is talking to a male patient that is not interested in the conversation. She is unable to hear a word he says. I) Provide prescribed meds. R) The patient is compliant with meds. P) Continue POC.
[2019-06-22 08:00] VITALS: BP 118/58
--- NOTE | 2019-06-22 11:50 | NUR ---
The patient's sister called and checked on her. Explained to her that she is getting better, but that the DrDenys is still adjusting meds and that she will need to be here a few more days. The sister vwerbalized understanding.
--- NOTE | 2019-06-22 17:21 | NUR ---
The patient's blood sugar is 150 at this time, no coverage required.
[2019-06-22 21:05] VITALS: BP 138/70
--- NOTE | 2019-06-22 21:56 | NUR ---
B.) PT IS ALERT AND ORIENTED TO SELF ONLY. SHE HAS POOR INSIGHT INTO HER SITUATION. SHE IS RECIEVED IN HER WHEELCHAIR AND SOCIALIZING. SHE IS COOPERATIVE BUT CAN OCCASIONALLY BE DEMANDING. FSBS 468. I.) REDIRECT OFTEN. PROVIDED PM MEDICATIONS. RECHECKED AND NOTIFIED TANGUNAN. Whitaker) SHE IS OFTEN EASY TO REDIRECT. COMPLIANT WITH ALL MEDICATIONS. GAVE 17 UNITS OF INSULIN IN HER RLQ OF HER ABD. P.) CONTINUE PLAN OF CARE
--- NOTE | 2019-06-23 04:00 | NUR ---
PT IV WAS LEAKING IV FLUID FROM SITE. REMOVED IV WILL CONTINUE TO MONITOR.
[2019-06-23 08:00] VITALS: BP 111/66
--- NOTE | 2019-06-23 17:29 | NUR ---
RECEIVED PATIENT IN DINING ROOM FOR B'FAST, ALERT, CALM, COOPERATIVE, SEXUALLY INAPPROPRIATE AT TIMES. COMPLIANT WITH MEDS. FREQUENTLY CURSES ALOUD AND YELLS. CONT POC DIRECTED.
--- NOTE | 2019-06-23 19:22 | NUR ---
RECEIVED IN DAYROOM. MOVING ABOUT IN HER WHEELCHAIR SOCIALIZING WITH PEERS. CALM AND COOPERATIVE WITH CARE AND ASSESSMENT. NO SIGNS OF SEXUALLY INAPPROPRIATE BEHAVIOR. REDIRECT AND REORIENT NEEDED. CONTINUES TO MOVE ABOUT IN DAYROOM. CONTINUE PLAN OF CARE
[2019-06-23 22:56] VITALS: BP 140/59
--- NOTE | 2019-06-24 00:58 | NUR ---
PT REFUSES FSBS
--- NOTE | 2019-06-24 01:06 | NUR ---
PATIENT REFUSED IV START.
--- NOTE | 2019-06-24 06:15 | NUR ---
PT STILL COMPLAINS OF DIFFICULTY BREATHING. O2 SAT 98%. HOB 35 DEGREES. ENCOURAGED TO CONTINUE COUGHING UP SPUTUM. WILL CONTINUE TO MONITOR
[2019-06-24 08:00] VITALS: BP 133/47
[2019-06-24 08:20] LABS: ANION GAP 13.8 mmol/L (8-16); CALCIUM 9.4 mg/dL (8.5-10.1); CARBON DIOXIDE 26.8 mmol/L (21.0-32.0); CREATININE - SERUM 1.6 mg/dL (0.6-1.3); POTASSIUM - SERUM 4.6 mmol/L (3.5-5.1)
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
--- NOTE | 2019-06-24 15:17 | NUR ---
RECEIVED PT IN DINING ROOM AT B'FAST, ALERT, CALM, CONFUSED, COOPERATIVE, CONT SEDUCTIVE BEHAVIOR. MEDS ADMIN PER ORDERS WITH COMPLETE MED COMPLIANCE NOTED. NO AGGRESSION NOTED. CONT POC DIRECTED. FSBS 490, 12 UNITS HUMALOG ADMIN PER S/S, PHYSICIAN NOTIFIED, NO NEW ORDERS NOTED.
[2019-06-24 20:22] VITALS: BP 134/64
--- NOTE | 2019-06-24 20:29 | NUR ---
RECEIVED IN DAYROOM. MOVING ABOUT IN A WHEELCHAIR. NO SEXUALLY INAPPROPRIATE BEHAVIOR. REFUSED IV START. REDIRECT AND REORIENT NEEDED. RESTING IN BED WITH EYES CLOSED. CONTINUE PLAN OF CARE
--- NOTE | 2019-06-25 07:45 | NUR ---
PT CONTINUES TO REFUSE IV FLUIDS. PT EXPLAINED THE IMPORTANCE OF IV FLUIDS. PT EDUCATED. PT CONTINUES TO REFUSE IV X 3. WILL ATTEMPT AT LATER TIME IF ALLOWED PER PT.
[2019-06-25 08:00] VITALS: BP 107/83
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
--- NOTE | 2019-06-25 14:32 | NUR ---
PT IS AWAKE AND ALERT TO PERSON ONLY. PT IS CALM AND COOPERATIVE WITH ASSESSMENT. MED COMPLIANT. PT IS VERY CONFUSED, DEMANDING, AND ANGRY WITH STAFF OFTEN. REDIRECT AND REORIENT NEEDED. PT. VERY HARD AND UNABLE TO REDIRECT AT TIMES. PT THROWS ITEMS ACROSS THE ROOM AT STAFF AND OTHER PTS FOR ATTENTION. PT DOES SCREAM OUT FOR NO APPARENT REASON. MED COMPLIANT. FALL PRECAUTIONS IN PLACE. WILL CPOC.
--- NOTE | 2019-06-25 19:52 | NUR ---
RECEIVED IN HALLWAY OUTSIDE OF NURSES STATION IN WHEELCHAIR. CALM AND COOPERATIVE WITH CARE AND ASSESSMENT. NO SEXUALLY INAPPROPRIATE BEHAVIOR. REDIRECT AND REORIENT NEEDED. RESTING IN BED WITH EYES CLOSED AT THIS TIME. CONTINUE PLAN OF CARE
[2019-06-26 04:19] VITALS: BP 120/64
[2019-06-26 08:25] VITALS: BP 138/59
--- NOTE | 2019-06-26 15:36 | NUR ---
Nutrition Follow-up: Diet: Diabetic low potassium PO intake: 60-100% all meals Wt: 150# (06/23/19): admit wt: 147# (05/31/19) Labs, meds, and skin assessment reviewed. +BM Continue current nutrition regimen. RD Following
--- NOTE | 2019-06-26 15:45 | NUR ---
PT IS AWAKE AND ALERT TO PERSON ONLY. CALM AND COOPERATIVE WITH ASSESSMENT. MED COMPLIANT. REDIRECT AND REORIENT NEEDED. FALL PRECAUTIONS IN PLACE. WILL CPOC.
--- NOTE | 2019-06-26 15:47 | PN ---
PATIENT:HOMER VIDES MEDICAL RECORD: [id number] LOCATION:LAURYN Carmona ADMISSION DATE: 05/31/19 PROGRESS NOTE DATE OF SERVICE: 06/13/2019 SUBJECTIVE: The patient's case was discussed with staff. She has no new complaint. OBJECTIVE: The patient has become more agitated over the past couple of days. She has no recollection of this and really very limited insight about it. ASSESSMENT: Dementia. PLAN: The patient is going to be started on gabapentin to assist with mood regulation. She will be monitored for clinical changes associated with its use. Her long-term prognosis is guarded. TRANSINT:[id number] Voice Confirmation ID: [id number] DOCUMENT ID: [id number] ISABELLE DUCKWORTH MD at 1547 CC: [id number] DICTATION DATE: 06/13/19 1441 DYE COLORIST DYER: 06/13/19 194 ADM IN [facility] [address] [place] [address]
[2019-06-26 20:19] VITALS: BP 139/57
--- NOTE | 2019-06-26 21:46 | NUR ---
B.) PT IS ALERT AND ORIENTED TO SELF AND SITUATION. SHE IS RECIEVED IN DAYROOM. SHE IS SOCIALIZING WITH PEERS. SHE IS ABLE TO MAKE HER NEEDS KNOWN AND IS PLEASANT WITH STAFF. SHE IS HARD OF HEARING IN BOTH EARS. I.) PROVIDED PM MEDICATIONS. REDIRECT OFTEN. R.) COMPLIANT WITH ALL MEDS. PT IS EASY TO REDIRECT. P.) CONTINUE PLAN OF CARE
[2019-06-27 08:49] VITALS: BP 122/66
--- NOTE | 2019-06-27 10:30 | NUR ---
RECEIVED PT IN DINING ROOM FOR B'FAST, ALERT, CALM, COOPERATIVE. MEDS ADMIN PER ORDERS WITH COMPLETE MED COMPLIANCE NOTED. NO AGGRESSION, HOWEVER PT WILL OCCASIONALLY CURSE WITH AGITATED. CONT POC DIRECTED.
--- NOTE | 2019-06-27 12:50 | NUR ---
Team Treatment Review: Diet: Diabetic/Low Potassium Diet PO intake: 90 % x 9 meals Wt: (-1.4 lbs) 06/16/2019: 151 lbs 06/23/2019: 149.6 lbs BM: x 1 on 06/24 Meds: Lantus, HumaLOG Labs: BUN- 14(H), Cr- 1.6(H), A1c-7.7(H) Continue Current diet, PO intake good. Possible laxative to prevent constipation Clinical Dietitian to continue following patient
--- NOTE | 2019-06-27 14:53 | PN ---
PATIENT:HOMER VIDES MEDICAL RECORD: [id number] LOCATION:LAURYN Carmona ADMISSION DATE: 05/31/19 PROGRESS NOTE DATE OF SERVICE: 06/26/2019 SUBJECTIVE: The patient's case was discussed with staff. She has no new complaint. OBJECTIVE: The patient is in good behavioral control, but earlier today, was screaming and agitated. She is intermittently noncompliant with her medicines. ASSESSMENT: Dementia. PLAN: Current medicines have been reviewed. Her long-term prognosis is guarded. TRANSINT:[id number] Voice Confirmation ID: [id number] DOCUMENT ID: [id number] ISABELLE DUCKWORTH MD at 1453 CC: [id number] DICTATION DATE: 06/26/19 1601 ERP ANALYST: 06/26/19 2355 ADM IN [id number] [place] [address]
[2019-06-27 20:53] VITALS: BP 135/55
--- NOTE | 2019-06-28 03:34 | NUR ---
B) Patient is alert and oriented to person and place, liable and restless at times, I) Administered scheduled medications as ordered, FSBS , monitored for safety R) Mediation compliant, social with staff and peers, P) Continue plan of care.
--- NOTE | 2019-06-28 12:24 | NUR ---
NOTIFY DR. LEON ABOUT PT BLOOD SUGAR OF: 448 MG/DL. 12 UNITS OF INSULIN GIVEN PER SLIDING SCALE ORDER.
--- NOTE | 2019-06-28 12:34 | NUR ---
HEMOGLOBIN A1C ORDERED PER DR LEON.
--- NOTE | 2019-06-28 13:05 | NUR ---
RECEIVED PT IN DINING ROOM FOR B'FAST, ALERT, CALM, COOPERATIVE. MEDS ADMIN PER ORDERS WITH COMPLETE MED COMPLIANCE NOTED. PATIENT HAD ONE OUTBURST OF YELLING THIS MORNING BUT WAS EASILY RE-DIRECTED. COOPERATIVE WITH PLAN OF CARE. CONT POC DIRECTED.
--- NOTE | 2019-06-28 14:24 | NUR ---
PT RECHECK ON CMP AND BMP.
--- NOTE | 2019-06-28 14:28 | PN ---
PATIENT:HOMER VIDES MEDICAL RECORD: [id number] LOCATION:LAURYN Gramajo112 ADMISSION DATE: 05/31/19 PROGRESS NOTE DATE OF SERVICE: 06/27/2019 SUBJECTIVE: The patient's case was discussed with staff. She has no new complaint. OBJECTIVE: The patient is in good behavioral control with very limited insight about her condition. She continues to be significantly and seriously agitated at times, although she is not yelling today as she has previously been. ASSESSMENT: No change in diagnoses. PLAN: Current medicines have been reviewed and will be maintained. Long-term prognosis is guarded. TRANSINT:[id number] Voice Confirmation ID: [id number] DOCUMENT ID: [id number] ISABELLE DUCKWORTH MD at 1428 CC: [id number] DICTATION DATE: 06/27/19 1458 WATER CHEMIST: 06/28/19 0011 ADM IN [facility] [address] [place] [address]
[2019-06-28 14:55] VITALS: BP 135/55
[2019-06-28 16:44] LABS: ALBUMIN 3.2 g/dL (3.4-5.0); ANION GAP 11.8 mmol/L (8-16); BILIRUBIN - TOTAL 0.19 mg/dL (0.2-1.3); CALCIUM 9.1 mg/dL (8.5-10.1); CREATININE - SERUM 2.1 mg/dL (0.6-1.3); POTASSIUM - SERUM 4.8 mmol/L (3.5-5.1)
[2019-06-28 20:05] VITALS: BP 119/53
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
[2019-06-29 08:56] VITALS: BP 125/60
[2019-06-29 11:23] VITALS: BP 125/60
--- NOTE | 2019-06-29 12:17 | PN ---
PATIENT:HOMER VIDES MEDICAL RECORD: [id number] LOCATION:LAURYN Carmona ADMISSION DATE: 05/31/19 PROGRESS NOTE DATE OF SERVICE: 06/28/2019 SUBJECTIVE: The patient's case was discussed with staff. She has no new complaint. OBJECTIVE: The patient is in good behavioral control. She has no thoughts of harming herself or others. She is tolerating her medicines well. ASSESSMENT: Dementia. PLAN: Current medicines have been reviewed and will be maintained. Long-term prognosis is guarded. TRANSINT:[id number] Voice Confirmation ID: [id number] DOCUMENT ID: [id number] ISABELLE DUCKWORTH MD at 1217 CC: [id number] DICTATION DATE: 06/28/19 1446 RUSSET REPAIRER: 06/28/19 1500 ADM IN [id number] [place] [address]
--- NOTE | 2019-06-29 14:21 | NUR ---
PT IS AWAKE AND ALERT TO PERSON ONLY. CALM AND COOPERATIVE WITH ASSESSMENT. MED COMPLIANT. PT CAN BECOME UPSET WITH STAFF EASILY. UNABLE TO REDIRECT AT TIMES. REDIRECT AND REORIENT NEEDED. FALL PRECAUTIONS IN PLACE. WILL CPOC.
[2019-06-29 20:59] VITALS: BP 132/60
--- NOTE | 2019-06-29 21:50 | NUR ---
SITTING IN DAYROOM IN WHELLCHAIR. IS MOBILE ON UNIT IN WHEELCHAIR. DISORIENTED TO TIME AND SITUATION RELATING SHE IS IN THE CRAZY HOUSE AND SHE WANTS TO GO BACK TO THE [facility] BECAUSE SHE IS NOT CRAZY. VERY LABILE AND WILL BE PLEASANT AND COOPERATIVE AND THEN WILL BECOME AGITATED AND THROW CALL JIMENEZ AND CURSE. VERY [place] AND HAS DIFFICULTY UNDERSTANDING INSTRUCTIONS. RED RASH TO RIGHT SIDE OF BODY. PT. INFORMED MHT SHE DID NOT WANT A GOWN FOR BEDTIME SHE WAS GOING TO WEAR HER CLOTHES BECAUSE IT IS WARMER. ADMINISTER MEDS AND MONITOR COMPLIANCE. REDIRECT FOR ANGRY OUTBURST. MED COMPLIANT. INCONSISTENT WITH REDIRECTION. AT TIMES WILL FOLLOW REDIRECTION AND AT OTHERS IS VERY ARGUMENTATIVE AND NOT COOPERATE. CONTINUE POC AND PROVIDE SAFE ENVIRONMENT.
[2019-06-30 08:41] VITALS: BP 127/65
--- NOTE | 2019-06-30 10:51 | PN ---
PATIENT:HOMER VIDES MEDICAL RECORD: [id number] LOCATION:LAURYN Gramajo112 ADMISSION DATE: 05/31/19 PROGRESS NOTE DATE OF SERVICE: 06/29/2019 SUBJECTIVE: The patient's case was discussed with staff. She has no new complaint. OBJECTIVE: The patient is in good behavioral control with limited insight about her condition. She tolerates her medicines well. ASSESSMENT: Dementia. PLAN: The patient has not been yelling today. I am encouraged by her improvement and anticipate she can reasonably be discharged from the hospital soon. TRANSINT:[id number] Voice Confirmation ID: [id number] DOCUMENT ID: [id number] ISABELLE DUCKWORTH MD at 1051 CC: [id number] DICTATION DATE: 06/29/19 1225 AUTO ELECTRICIAN: 06/29/19 1255 ADM IN [facility] [address] [place] [address]
--- NOTE | 2019-06-30 14:10 | NUR ---
PT PROPELS SELF IN W/C THROUGHOUT THE UNIT. AWAKE AND ALERT TO PERSON ONLY. CALM AND COOPERATIVE WITH ASSESSMENT. MED COMPLIANT. PT DID HAVE A CRITICAL LAB OF 473 BLOOD GLUCOSE. CALLED NEW ORDER TO CHANGE SLIDING SCALE TO INTERMEDIATE SLIDING SCALE. SLIDING SCALE GIVEN PER ORDER. NO BEHAVIORS NOTED. REDIRECT AND REORIENT NEEDED. FALL PRECAUTIONS IN PLACE. WILL CPOC.
--- NOTE | 2019-06-30 20:04 | NUR ---
RECEIVED IN DAYROOM. SITTING IN A WHEELCHAIR SOCIALIZING WITH PEERS. CALM AND COOPERATIVE WITH CARE AND ASSESSMENT. NO SIGNS OF SEXUALLY INAPPROPRIATE BEHAVIORS. REDIRECT AND REORIENT NEEDED. RESTING IN BED EYES CLOSED AT THIS TIME. CONTINUE PLAN OF CARE
[2019-06-30 21:33] VITALS: BP 131/66
[2019-07-01 08:00] VITALS: BP 124/62
--- NOTE | 2019-07-01 10:32 | NUR ---
PT. RECEIVED IN DINING ROOM FOR B'FAST, DROWSY, CALM, NO BEHAVIORAL ISSUES NOTED, MEDS ADMIN PER ORDERS WITH COMPLETE MED COMPLIANCE NOTED. CONT POC DIRECTED. NEW ORDERS NOTED: CBC, AND BMP.
[2019-07-01 12:16] LABS: BASOPHILS 0.5 % (0-2); EOSINOPHILS 3.5 % (0-7); HEMATOCRIT 33.7 % (36.0-48.0); HEMOGLOBIN 10.4 g/dL (12-16); IMMATURE GRANULOCYTES 0.2 % (0-5); LYMPHOCYTES 22.6 % (15-50); MCH 30.4 pg (26.0-34.0); MCHC 30.9 g/dL (31.0-37.0); MCV 98.5 fL (80.0-100.0); MEAN PLATELET VOLUME 11.7 fL (7.4-10.4); MONOCYTES 8.7 % (2-11); NEUTROPHILS 64.5 % (40-80); PLATELET COUNT 181 10x3/uL (130-400); RBC 3.42 10x6/uL (4.00-5.40); RDW 13.2 % (11.5-14.5); WBC 6.5 10x3/uL (4.8-10.8)
[2019-07-01 12:25] LABS: ANION GAP 14.1 mmol/L (8-16); CALCIUM 8.6 mg/dL (8.5-10.1); CARBON DIOXIDE 25.9 mmol/L (21.0-32.0); CREATININE - SERUM 1.8 mg/dL (0.6-1.3)
--- NOTE | 2019-07-01 15:02 | PN ---
PATIENT:HOMER VIDES MEDICAL RECORD: [id number] LOCATION:LAURYN Carmona ADMISSION DATE: 05/31/19 PROGRESS NOTE DATE OF SERVICE: 06/30/2019 SUBJECTIVE: The patient's case was discussed with staff. She has no new complaint. OBJECTIVE: The patient is in good behavioral control with limited insight about her condition. She has not been yelling today. ASSESSMENT: Dementia. PLAN: I anticipate the patient can be transitioned out of the hospital soon if this level of improvement is maintained. Long-term prognosis is guarded. TRANSINT:[id number] Voice Confirmation ID: [id number] DOCUMENT ID: [id number] ISABELLE DUCKWORTH MD at 1502 CC: [id number] DICTATION DATE: 06/30/19 1138 WEATHER ALGORITHM SCIENTIST: 06/30/19 1521 ADM IN [facility] [address] [place] [address]
[2019-07-01 20:14] VITALS: BP 140/70
--- NOTE | 2019-07-01 21:35 | NUR ---
RECEIVED IN DAYROOM. SOCIALIZING WITH PEERS AND STAFF. CALM AND COOPERATIVE WITH CARE AND ASSESSMENT. NO SEXUALLY INAPPROPRIATE BEHAVIORS. NO AGGRESSIVE BEHAVIORS. NO YELLING OUT. REDIRECT AND REORIENT NEEDED. RESTING IN BED WITH EYES CLOSED AT THIS TIME. CONTINUE PLAN OF CARE.
[2019-07-02 07:00] VITALS: BP 119/91
--- NOTE | 2019-07-02 11:45 | NUR ---
FSBS 416. STAT LAB ORDERED.
--- NOTE | 2019-07-02 14:49 | PN ---
PATIENT:HOMER VIDES MEDICAL RECORD: [id number] LOCATION:LAURYN Carmona ADMISSION DATE: 05/31/19 PROGRESS NOTE DATE OF SERVICE: 07/01/2019 SUBJECTIVE: The patient's case was discussed with staff. She has no new complaint. OBJECTIVE: The patient continues to have difficulty with her blood sugar going up and down. I am going to discontinue her Zyprexa. Her long-term prognosis is guarded. TRANSINT:[id number] Voice Confirmation ID: [id number] DOCUMENT ID: [id number] ISABELLE DUCKWORTH MD at 1449 CC: [id number] DICTATION DATE: 07/01/19 1609 AUTOCAD: 07/02/19 0014 ADM IN [id number] [place] [address]
--- NOTE | 2019-07-02 17:58 | NUR ---
PATIENT ALERT. CALM, PLEASANT MOOD, MEDICATIONS ADMIN PER ORDERS WITH COMPLETE MED COMPLIANCE NOTED. OCCASIONALLY YELLS ALOUD WHEN ANGRY. HOWEVER, OVERALL PATIENT'S BEHAVIOR IS MUCH IMPROVED. NO INAPPROPRIATE BEHAVIOR NOTED. COOPERATIVE WITH PLAN OF CARE. CONT POC DIRECTED.
--- NOTE | 2019-07-02 18:04 | NUR ---
PATIENT'S SISTER PHONED TO CHECK ON PATIENT'S CONDITION AND PENDING DISCHARGE.
--- NOTE | 2019-07-02 20:40 | NUR ---
RECEIVED IN DAYROOM. SITTING IN A CHAIR WITH PEERS AT HER SIDE. SOCIALIZING AT TIMES. CALM AND COOPERATIVE WITH CARE AND ASSESSMENT. NO SIGNS OF HALLUCINATIONS. REDIRECT AND REORIENT NEEDED. RESTING IN BED WITH EYES CLOSED AT THIS TIME. CONTINUE PLAN OF CARE
[2019-07-02 20:59] VITALS: BP 124/56
[2019-07-03 08:00] VITALS: BP 122/65
--- NOTE | 2019-07-03 12:07 | PN ---
PATIENT:HOMER VIDES MEDICAL RECORD: [id number] LOCATION:LAURYN Carmona ADMISSION DATE: 05/31/19 PROGRESS NOTE DATE OF SERVICE: 07/02/2019 SUBJECTIVE: The patient's case was discussed with staff. She has no new complaint. OBJECTIVE: The patient is in good behavioral control with limited insight about her condition. She does tolerate her medicines well. ASSESSMENT: No change in diagnoses. PLAN: The patient will be given a higher dose of gabapentin at 300 mg twice daily. She will be monitored for clinical changes associated with its use. Her long-term prognosis is guarded. TRANSINT:[id number] Voice Confirmation ID: [id number] DOCUMENT ID: [id number] ISABELLE DUCKWORTH MD at 1207 CC: [id number] DICTATION DATE: 07/02/19 1504 BID WRITER: 07/03/19 0052 ADM IN [place] [id number] [place] [id number]
--- NOTE | 2019-07-03 15:52 | NUR ---
Nutrition Follow-up: Diet: Diabetic low potassium PO intake: 86% average x last 9 meals Labs noted: Glu 252H. Meds noted: SSI, lantus Skin assessment reviewed Last BM 07/02/19. Wt: 152# (06/30/19); Admit wt: 147# (05/31/19) Continue current nutrition regimen. RD Following
--- NOTE | 2019-07-03 18:26 | NUR ---
PATIENT HAS BEEN COOPERATIVE THIS SHIFT, PLEASANT, NO INAPPROPRIATE BEHAVIOR NOTED. COMPLIANT WITH MEDICATIONS. COOPERATIVE WITH PLAN OF CARE. CONT POC DIRECTED.
--- NOTE | 2019-07-03 22:18 | NUR ---
RECEIVED IN HALLWAY OUTSIDE OF NURSES STATION. QUIETLY SITTING IN WHEELCHAIR. CALM AND COOPERATIVE WITH CARE AND ASSESSMENT. NO SEXUALLY INAPPROPRIATE BEHAVIORS. NO YELLING OUT. REDIRECT AND REORIENT NEEDED. RESTING IN BED WITH EYES CLOSED AT THIS TIME. CONTINUE PLAN OF CARE.
[2019-07-03 22:48] VITALS: BP 122/64
[2019-07-04 08:05] VITALS: BP 130/62
--- NOTE | 2019-07-04 08:08 | NUR ---
B) The patient is awake, she is talking to the other patients. She is [place] but she tries to communicate. She did not wake up in an aggressive mood. She is pleasant. She self propels in a w/c. She has not shown any sexually inappropriate behavior this am. I) Provide prescribed meds. R) The patient is compliant with meds. P) Continue POC.
--- NOTE | 2019-07-04 10:51 | NUR ---
NUTRITION F//U CHART REVIEWED. PT WITH GOOD INTAKE RECENT MEALS. +BM CHARTED 07/03/19. WT UP FROM ADMIT WT. WILL CONTINUE DIABETIC DIET, MONITOR PO INTAKE AND WT. RD FOLLOWING
--- NOTE | 2019-07-04 14:38 | PN ---
PATIENT:HOMER VIDES MEDICAL RECORD: [id number] LOCATION:LAURYN Carmona ADMISSION DATE: 05/31/19 PROGRESS NOTE DATE OF SERVICE: 07/03/2019 SUBJECTIVE: The patient's case was discussed with staff. She has no new complaint. OBJECTIVE: The patient is in good behavioral control. She is sleeping adequately. Her blood sugar continues to be erratic. She has been much more awake and alert. ASSESSMENT: Dementia. PLAN: The patient is going to be treated with a higher dose of Klonopin. Klonopin is being used to treat her underlying agitation. Her long-term prognosis is guarded. TRANSINT:[id number] Voice Confirmation ID: [id number] DOCUMENT ID: [id number] ISABELLE DUCKWORTH MD at 1438 CC: [id number] DICTATION DATE: 07/03/19 1250 BLOCK TESTER: 07/03/19 1309 ADM IN [facility] [address] [place] [address]
[2019-07-04] MEDS ORDERED: DONEPEZIL HCL10 MG PO (14:43)
[2019-07-04] MEDS ORDERED: VALTREX500 MG PO (14:43)
[2019-07-04] MEDS ORDERED: NORVASC5 MG PO (14:44)
[2019-07-04] MEDS ORDERED: NEURONTIN 300300 MG PO (14:44)
[2019-07-04] MEDS ORDERED: KLONOPIN0.5 MG PO (14:45)
[2019-07-04] MEDS ORDERED: MAG-OX 400 MG400 MG PO (14:45)
[2019-07-04] MEDS ORDERED: HUMALOG 30100 UNITS/ SC (14:46)
[2019-07-04] MEDS ORDERED: LANTUS SOL100 UNIT/1 SC (14:46)
--- NOTE | 2019-07-04 17:38 | NUR ---
PATIENT FSBS: 103 MG/DL. PT STATED "GIVE ME SOME SUGAR. I'M GOING TO BOTTOM OUT." NURSE ATTEMPED TO EXPLAIN THAT SHE WOULD NOT BOTTOM OUT SHE HAD 20 MINUTES UNTIL DINNER ARRIVED. PT ATE WELL AT MEALS.
--- NOTE | 2019-07-04 17:44 | NUR ---
STAFF CONTINUES TO MONITOR PT MEALS FOR DIABETIC DIET.
--- NOTE | 2019-07-04 23:43 | NUR ---
B) Patient is alert and oriented to person and place, friendly and or argumentive at any one time very liable, I) Administered scheduled medications as ordered, monitored for safety R) Mediation compliant, resting quietly now in her room, P) Continue plan of care.
[2019-07-05 00:43] VITALS: BP 130/70
--- NOTE | 2019-07-05 07:26 | NUR ---
B) The patient is awake and she is interacting with staff and peers. She is self propelling in her w/c. She has poor insight into her situation. She is [place] and it is difficult to communicate with her at times. She has not shown any sexuallu inappropriate behavior. I) Provide prescribed meds. R) The patient is compliant with meds and unit milieu. P) Continue POC.
[2019-07-05 08:44] VITALS: BP 147/58
--- NOTE | 2019-07-05 11:26 | NUR ---
BS 408, WILL CALL DR. LEON AND HAVE A STAT GLUCOSE DRAWN.
--- NOTE | 2019-07-05 11:31 | NUR ---
Dr. Alas requests to give the 20 units of insulin as per order, no new orders.
--- NOTE | 2019-07-05 11:50 | NUR ---
technical solutions engineer attempted to get glucose lab draw from the patient's finger, but the patient did not provide enough blood so the labor contractor asked her if she could try a venous lab draw, but the patient refused.
--- NOTE | 2019-07-05 12:05 | NUR ---
Spoke to Phill garcia and they state they will pick Bibi up at 1330 to 1345 today.
--- NOTE | 2019-07-05 13:50 | NUR ---
PATIENT DISCHARGED TO [facility] THIS AFTERNOON. PT BELONGINGS GIVEN TO SCREENER PERFUMER AND PAPERWORK. PT STABLE AT THIS TIME OF DISCHARGE. PT HAS HAD NO BEHAVIORS THIS SHIFT. PT DID NOT EAT LUNCH STATING SHE WAS GOING TO GET A GOOD MEAL AT HOME. PT PROPELLED OUT IN SELF WHEELCHAIR.
--- NOTE | 2019-07-05 15:03 | PN ---
PATIENT:HOMER VIDES MEDICAL RECORD: [id number] LOCATION:LAURYN Carmona ADMISSION DATE: 05/31/19 PROGRESS NOTE DATE OF SERVICE: 07/04/2019 SUBJECTIVE: The patient's case was discussed with staff. She has no new complaint. OBJECTIVE: The patient has not been seriously or significantly agitated today. She generally tolerates her medicines well. ASSESSMENT: Dementia. PLAN: I anticipate the patient can be transitioned out of the hospital tomorrow. Her long-term prognosis is guarded. TRANSINT:[id number] Voice Confirmation ID: [id number] DOCUMENT ID: [id number] ISABELLE DUCKWORTH MD at 1503 CC: [id number] DICTATION DATE: 07/04/19 1441 SOCIAL SECURITY ASSESSOR: 07/04/19 2246 ADM IN [facility] [address] [place] [address]
--- NOTE | 2019-07-06 12:31 | PN ---
PATIENT:HOMER VIDES MEDICAL RECORD: [id number] LOCATION:LAURYN Carmona ADMISSION DATE: 05/31/19 PROGRESS NOTE DATE OF SERVICE: 07/05/2019 SUBJECTIVE: The patient's case was discussed with staff. She has no new complaint. OBJECTIVE: The patient is in good behavioral control. She has limited insight about her condition. She is tolerating her medicines well. ASSESSMENT: Dementia. PLAN: The patient will be transitioned out of the hospital today. Followup will be with her primary care assisted physician. TRANSINT:[id number] Voice Confirmation ID: [id number] DOCUMENT ID: [id number] ISABELLE DUCKWORTH MD at 1231 CC: [id number] DICTATION DATE: 07/05/19 1545 PRESS TOOL MAKER: 07/05/19 2246 DIS IN 07/05/19 [facility] [address] [place] [address]
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
== END 2019-07-05 13:55 | DRG 57 ==
LOC: D.PSYCH 16:31
PROVIDERS: Family Medicine; ADMIT Psychiatry & Neurology Psychiatry; ATTEND Psychiatry & Neurology Psychiatry
DX: G30.9 Alzheimer's disease, unspecified (principal); F01.51 Vascular dementia, unspecified severity, with behavioral disturbance; F02.81 Dementia in other diseases classified elsewhere, unspecified severity, with behavioral disturbance; N18.4 Chronic kidney disease, stage 4 (severe); N17.9 Acute kidney failure, unspecified; N39.0 Urinary tract infection, site not specified; E78.5 Hyperlipidemia, unspecified; E53.8 Deficiency of other specified B group vitamins; E11.22 Type 2 diabetes mellitus with diabetic chronic kidney disease; I12.9 Hypertensive chronic kidney disease with stage 1 through stage 4 chronic kidney disease, or unspecified chronic kidney disease; R26.89 Other abnormalities of gait and mobility; B96.20 Unspecified Escherichia coli [E. coli] as the cause of diseases classified elsewhere; D63.1 Anemia in chronic kidney disease; G47.00 Insomnia, unspecified; B02.9 Zoster without complications; Z91.81 History of falling

== ENCOUNTER 2019-08-27 12:39 | Inpatient (IN) | payer MEDICARE ==
[~2019-08-27] VITALS: Ht 152.4 cm; Wt 71.4 kg
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
[~2019-08-27 12:39] MED LIST changes: +CALCIUM 500 +1 EAC3; +DONEPEZIL HCL10 MG PO; +GLUCOPHAGE1000 MG; +JANUVIA50 MG; +KLONOPIN0.5 MG PO; +LANTUS SOL100 UNIT/1 SC; +MAG-OX 400 MG400 MG PO; +METOPROLOL TART25 MG; +MULTI-DAY VITAM1 TAB; +NEURONTIN 300300 MG PO; +NORVASC5 MG PO; +NOVOLOG100 UNIT/1; +PAXIL CR12.5 MG; +REMERON15 MG; +SEROQUEL25 MG; +VALTREX500 MG PO; +ZOCOR10 MG
[2019-08-27] MEDS ORDERED: CONCERTA 18 MG18 MG PO (16:09)
[2019-08-27] MEDS ORDERED: KLONOPIN0.5 MG PO (16:09)
[2019-08-27] MEDS ORDERED: DEPAKOTE SPRIN125 MG PO (16:10)
[2019-08-27] MEDS ORDERED: PAXIL20 MG PO (16:12)
[2019-08-27] MEDS ORDERED: NOVOLOG100 UNIT/1 SC (16:12)
[2019-08-27] MEDS ORDERED: LEVEMIR IN100 UNITS/ SC (16:13)
[2019-08-27] MEDS ORDERED: MEDROXYPROG150 MG/ML IM (16:23)
[2019-08-27 16:51] VITALS: BP 149/69; BMI 30.3
[2019-08-27 17:20] LABS: BASOPHILS 0.6 % (0-2); EOSINOPHILS 5.5 % (0-7); HEMATOCRIT 35.8 % (36.0-48.0); HEMOGLOBIN 11.3 g/dL (12-16); IMMATURE GRANULOCYTES 0.2 % (0-5); LYMPHOCYTES 31.7 % (15-50); MCH 30.8 pg (26.0-34.0); MCHC 31.6 g/dL (31.0-37.0); MCV 97.5 fL (80.0-100.0); MEAN PLATELET VOLUME 11.3 fL (7.4-10.4); MONOCYTES 9.7 % (2-11); NEUTROPHILS 52.3 % (40-80); RBC 3.67 10x6/uL (4.00-5.40); RDW 13.2 % (11.5-14.5); WBC 5.1 10x3/uL (4.8-10.8)
[2019-08-27 17:41] LABS: APPEARANCE CLEAR (CLEAR); BILIRUBIN NEGATIVE (NEGATIVE); COLOR YELLOW (YELLOW); GLUCOSE 1000 mg/dL (NEGATIVE); KETONE NEGATIVE (NEGATIVE); NITRITE NEGATIVE (NEGATIVE); PROTEIN NEGATIVE (NEGATIVE); SPECIFIC GRAVITY 1.015 (1.005-1.020); UROBILINOGEN NORMAL (NORMAL)
[2019-08-27 17:45] LABS: PLATELET COUNT 218 10x3/uL (130-400)
[2019-08-27 18:20] LABS: ALBUMIN 3.4 g/dL (3.4-5.0); ANION GAP 13.2 mmol/L (8-16); BILIRUBIN - TOTAL 0.15 mg/dL (0.2-1.3); CARBON DIOXIDE 23.8 mmol/L (21.0-32.0); CHOL - HDL RATIO 4.6 ratio (2.3-4.1); CREATININE - SERUM 1.9 mg/dL (0.6-1.3); LDL-HDL RATIO 3.1 ratio (1.5-3.5); PROTEIN - SERUM 7.1 g/dL (6.4-8.2); THYROID STIMULATING HORMONE 0.97 uIU/mL (0.36-3.74); VALPROIC ACID (DEPAKOTE) 27.7 ug/mL (50.0-100.0)
--- NOTE | 2019-08-27 20:00 | NUR ---
RECEIVED IN DINING AREA, MOVING ABOUT IN A WHEELCHAIR. NEGATIVE STATEMENTS ABOUT EVERYTHING. CALM AND COOPERATIVE WITH CARE AND ASSESSMENT AT THIS TIME. NO SIGNS OF SEXUALLY INAPPROPRIATE BEHAVIOR AT THIS TIME. CONTINUES TO MOVE ABOUT IN WHEELCHAIR. CONTINUE PLAN OF CARE
[2019-08-27 22:55] VITALS: BP 142/76
[2019-08-28 08:00] VITALS: BP 159/54
[2019-08-28 08:11] LABS: RAPID PLASMA REAGIN Non Reactive (Non Reactive)
[2019-08-28 15:22] VITALS: Ht 152.4 cm; Wt 71.4 kg
--- NOTE | 2019-08-28 17:48 | NUR ---
PATIENT HAS OCCASIONALLY YELLED OUT THIS SHIFT. FREQUENTLY CURSES. NO AGGRESSION NOTED. NO SEXUALLY INAPPROPRIATE BEHAVIOR. CONT POC DIRECTED.
[2019-08-28 20:30] VITALS: BP 164/93
--- NOTE | 2019-08-28 23:22 | NUR ---
REC'D PATIENT SITTING IN THE DAYROOM. HAD AN EPISODE OF YELLING AND CURSING IN THE DAYROOM. IF DOES NOT GET HER WAY SHE ACTS OUT. ASKS NURSE IF SHE HAD A BIG FAT MAN TO SLEEP WITH HER AND KEEP HER WARM. ORIENTED TO PLACE AND SELF. ADMINISTER MEDS AND MONITOR COMPLIANCE. REDIRECT FOR ANGRY OUTBURTS. MED COMPLIANT. DIFFICULT TO REDIRECT AT TIMES. VERY ARGUMENTATIVE. CONTINUE POC AND PROVIDE SAFE ENVIRONMNET.
[2019-08-29 08:51] VITALS: BP 151/65
--- NOTE | 2019-08-29 09:57 | NUR ---
Nutrition Follow-up: Diet: Diabetic [facility] Soft PO intake: 33% average x last 6 meals No BM recorded since admit x 2 days. Wt: 155# (08/28/19) Significant meds: lantus, SSI. POC Glu 175. Continue current diet. Will add Glucerna with meals. Encourage PO intake. RD following.
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
--- NOTE | 2019-08-29 15:28 | NUR ---
B) The patient is creaming and yelling, cursing, throwing a fit. She doesn't want to get up and then she continued to scream. She continues to act out and curse. She self propels in a w/c she gets close to the men, but staff have removed her. I) Provided Ativan 0.5 mg IM in the right deltoid. R) The patient is brought into the day room and she is watching TV. P) Continue POC.
--- NOTE | 2019-08-29 16:18 | NUR ---
The patient is calmer now, she is not cursing and she is not showing any sexually inappropriate behavior at this time. Will continue monitor. The patient is [employer] and she is not able to comprehend what is being said both in cognition and hearing.
[2019-08-29 20:20] VITALS: BP 123/60
--- NOTE | 2019-08-29 23:15 | NUR ---
REC'D PATIENT IN THE DAYROOM IN HER WHEELCHAIR. INTERMITTENT EPISODES OF YELLING AND SCREAMING. RELATES SHE IS IN THE [facility] THEN RELATED "THE NUT HOUSE." RELATED THE REASON FOR HOSPITALIZATION IS "THEM SONS OF BITCHES THOUGHT I WAS CRAZY BECAUSE I WAS YELLING." PT YELLS CURSES AND SCREAMS TRYING TO GET HER WAY. ADMINISTER MEDS AND MONITOR COMPLIANCE. REDIRECT FOR VERBAL OUTBURST. MED COMPLIANT. POOR REDIRECTON. CONTINUE POC AND PROVIDE SAFE ENVIRONMENT.
--- NOTE | 2019-08-30 09:12 | NUR ---
The patient's sister Ting called to check on her. Explained to her that Bibi is still irritable, cursing, and fussy. Also let her know that she had to have two injections yesterday, but that she is calmer today.
[2019-08-30 09:31] VITALS: BP 146/77
--- NOTE | 2019-08-30 12:59 | NUR ---
B) The patient has been sleepy this am, she did take her depakote and her klonopin, she refused the rest of her meds. She is now waking up and cursing and making demands. I) Provide prescribed meds. Encourage the patient to participate in groups. R) The patient picks and chooses her meds. P) Continue POC.
--- NOTE | 2019-08-30 13:27 | NUR ---
The patient is cursing and making demands. She is irritable and she will laugh and laugh loudly for no reason then she will curse again. She is disrupting other patients and making them very anxious. Ativan 0.5 mg IM given in her right deltoid. Will monitor her behavior.
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
--- NOTE | 2019-08-30 15:57 | NUR ---
The patient is screaming, cursing and trying to hit staff she can not hear and she has poor insight into her situation. Ativan 0.5 mg IM in her left deltoid provided.
--- NOTE | 2019-08-30 16:30 | NUR ---
The patient is still yelling and cursing still she has not slowed down.
[2019-08-30 19:30] VITALS: BP 140/64
--- NOTE | 2019-08-31 01:48 | NUR ---
B) Patient is alert and oriented to person, yelling out at times, impatient, and distruptive, I) Administered scheduled medications as ordered, monitored for safety, R) Medication compliant, sleeping quietly now, P) Continue plan of care.
--- NOTE | 2019-08-31 08:17 | NUR ---
The patient is sleepy this am, she is not fighting, she did scream when staff got her up out of bed. She is in a gen chair at this time. She can self propel in a w/c. She has poor insight into her situation. She is ROSEBUD. Provide prescribed meds. Monitor the patient's behavior.
[2019-08-31 08:29] VITALS: BP 138/63
--- NOTE | 2019-08-31 10:06 | NUR ---
The patient is screaming and yelling to sit in her w/c. She is upsetting all of the other patients by yelling and cursing. Ativan 0.5 mg IM provided in her left deltoid. Did attempt to assist her to her w/c, but she was not able to stand. Encouraged her to sit back in the recliner.
--- NOTE | 2019-08-31 10:58 | NUR ---
The patient is in the dining room in a recliner. She continues to scream.
--- NOTE | 2019-08-31 12:38 | PN ---
PATIENT:HOMER VIDES MEDICAL RECORD: [id number] LOCATION:LAURYN Carmona ADMISSION DATE: 08/27/19 PROGRESS NOTE DATE OF SERVICE: 08/30/2019 SUBJECTIVE: The patient's case was discussed with staff. She has no new complaint. OBJECTIVE: The patient is in good behavioral control. She has limited insight about her situation. ASSESSMENT: Dementia. PLAN: The patient was yelling a great deal. Earlier, she did receive p.r.n. medication and now she is asleep. I have reviewed her current scheduled medicines and do not believe they have had an opportunity to become very effective. I will monitor her closely and maintain these medicines. TRANSINT:[id number] Voice Confirmation ID: [id number] DOCUMENT ID: [id number] ISABELLE DUCKWORTH MD at 1238 CC: [id number] DICTATION DATE: 08/30/19 1613 PRODUCT MARKETING DIRECTOR: 08/30/192006 ADM IN [id number] [place] [address]
[2019-08-31 20:00] VITALS: BP 138/65
--- NOTE | 2019-08-31 23:27 | NUR ---
B) Patient is alert and oriented to person, and place, disruptive at times, yelling out to get her way at times, I) Administered scheduled medications as ordered, monitored for safety R) Medication compliant, sleeping quietly now in her bed, P) Continue plan of care.
--- NOTE | 2019-09-01 07:15 | NUR ---
PATIENT IS YELLING, SCREAMING, CURSING AND KICKING AT STAFF. ATIVAN 0.5 MG AND HALDOL 2 MG IM GIVEN IN RIGHT GLUTEAL. SHE WAS REFUSING TO STAY IN RECLINER.
--- NOTE | 2019-09-01 08:30 | NUR ---
MEDICATION CALMED PATIENT FOR AN HOUR. SHE RESTED IN RECLINER.
--- NOTE | 2019-09-01 09:00 | NUR ---
SHE AWAKENED AND REFUSED HER MEDICATIONS. SHE STARTED SCREAMING AND YELLING OUT AGAIN. REDIRECTED AND CALMED DOWN FOR A SHORT TIME.
--- NOTE | 2019-09-01 19:41 | NUR ---
RECEIVED IN HALLWAY. RESTING IN A RECLINER WITH EYES CLOSED. CALM AND COOPERATIVE WITH CARE AND ASSESSMENT AT THIS TIME. NOT YELLING OUT. REDIRECT AND REORIENT NEEDED. NO SEXUALLY INAPPROPRIATE BEHAVIOR. CONTINUES TO REST EYES CLOSED IN RECLIBER. CONTINUE PLAN OF CARE.
[2019-09-01 20:09] VITALS: BP 127/82
--- NOTE | 2019-09-02 07:45 | NUR ---
FSBS 58. ORANGE JUICE GIVEN. WILL FOLLOW-UP.
--- NOTE | 2019-09-02 08:50 | NUR ---
FSBS 82. PT ALERT, CALM, EATING B'FAST, APPETITE GOOD.
[2019-09-02 09:36] VITALS: BP 111/38
--- NOTE | 2019-09-02 14:52 | NUR ---
PATIENT DROWSY, NO ADVERSE BEHAVIORS NOTED. COMPLIANT WITH MEDS. CONT POC ORDERED.
--- NOTE | 2019-09-02 15:13 | PN ---
PATIENT:HOMER VIDES MEDICAL RECORD: [id number] LOCATION:LAURYN Carmona ADMISSION DATE: 08/27/19 PROGRESS NOTE DATE OF SERVICE: 08/31/2019 SUBJECTIVE: The patient's case was discussed with staff. She has no new complaint. OBJECTIVE: The patient denies she would seek to harm herself or others. She has not been sexually inappropriate today. She did require medications because of agitation today. Her Depakote level was subtherapeutic a few days ago. I will check another level. TRANSINT:[id number] Voice Confirmation ID: [id number] DOCUMENT ID: [id number] ISABELLE DUCKWORTH MD at 1513 CC: [id number] DICTATION DATE: 08/31/19 1244 [employer] OFFICER: 08/31/19 1417 ADM IN [id number] [place] [address]
--- NOTE | 2019-09-02 15:13 | PN ---
PATIENT:HOMER VIDES MEDICAL RECORD: [id number] LOCATION:LAURYN Carmona ADMISSION DATE: 08/27/19 PROGRESS NOTE DATE OF SERVICE: 09/01/2019 SUBJECTIVE: The patient's case was discussed with staff. She has no new complaint. OBJECTIVE: The patient denies intent to harm herself or others. She generally tolerates her medicines well. Earlier today, she was yelling and cursing at staff, but she is calmer now. ASSESSMENT: Dementia. PLAN: The patient's Depakote level is therapeutic at 76. I am going to maintain her on current medicines for the time being. Her long-term prognosis is guarded. TRANSINT:[id number] Voice Confirmation ID: [id number] DOCUMENT ID: [id number] ISABELLE DUCKWORTH MD at 1513 CC: [id number] DICTATION DATE: 09/01/19 1424 ACCESS DIRECTOR: 09/01/19 1533 ADM IN [id number] [place] [id number]
[2019-09-02 23:37] VITALS: BP 136/70
--- NOTE | 2019-09-03 00:10 | NUR ---
RECEIVED IN PATIENT ROOM. RESTING IN BED WITH EYES OPEN. CALM AND COOPERATIVE WITH CARE AND ASSESSMENT. NO SEXUALLY INAPPROPRIATE BEHAVIORS. REDIRECT AND REORIENT NEEDED. RESTING IN BED WITH EYES CLOSED AT THIS TIME. CONTINUE PLAN OF CARE.
[2019-09-03 09:25] VITALS: BP 142/73
--- NOTE | 2019-09-03 11:00 | NUR ---
PATIENT IS DROWSEY AND LETHARGIC TODAY. MEDICATION COMPLIANT. NO AGGRESSIVE BEHAVIORS NOTED. WILL CONTINUE PLAN OF CARE.
--- NOTE | 2019-09-03 15:04 | PN ---
PATIENT:HOMER VIDES MEDICAL RECORD: [id number] LOCATION:LAURYN Carmona ADMISSION DATE: 08/27/19 PROGRESS NOTE DATE OF SERVICE: 09/02/2019 SUBJECTIVE: The patient's case was discussed with staff. She has no new complaint. OBJECTIVE: The patient is calm and cooperative today, but she did receive 2 doses of Haldol and Ativan yesterday. ASSESSMENT: Dementia. PLAN: The patient will be maintained on current medicines. It is my hope that the recent changes will have some effect. TRANSINT:[id number] Voice Confirmation ID: [id number] DOCUMENT ID: [id number] ISABELLE DUCKWORTH MD at 1504 CC: [id number] DICTATION DATE: 09/02/19 1530 POLICE GUARD: 09/02/19 1826 ADM IN [id number] [place] [address]
[2019-09-03 16:09] LABS: BASOPHILS 0.4 % (0-2); HEMATOCRIT 39.6 % (36.0-48.0); HEMOGLOBIN 12.2 g/dL (12-16); IMMATURE GRANULOCYTES 0.1 % (0-5); LYMPHOCYTES 28.9 % (15-50); MCH 30.1 pg (26.0-34.0); MCHC 30.8 g/dL (31.0-37.0); MCV 97.8 fL (80.0-100.0); MEAN PLATELET VOLUME 11.7 fL (7.4-10.4); MONOCYTES 8.8 % (2-11); NEUTROPHILS 57.8 % (40-80); PLATELET COUNT 193 10x3/uL (130-400); RBC 4.05 10x6/uL (4.00-5.40); RDW 13.2 % (11.5-14.5); WBC 7.3 10x3/uL (4.8-10.8)
[2019-09-03 16:33] LABS: ANION GAP 13.2 mmol/L (8-16); CALCIUM 9.4 mg/dL (8.5-10.1); CARBON DIOXIDE 27.2 mmol/L (21.0-32.0); CREATININE - SERUM 1.9 mg/dL (0.6-1.3); POTASSIUM - SERUM 5.4 mmol/L (3.5-5.1); VALPROIC ACID (DEPAKOTE) 77.9 ug/mL (50.0-100.0)
--- NOTE | 2019-09-03 19:28 | NUR ---
RECEIVED IN DAYROOM. SITTING AT TABLE WITH PEERS. CALM AND COOPERATIVE WITH CARE AND ASSESSMENT. NO SIGNS OF SEXUALLY INAPROPRIATE BEHAVIOR. REDIRECT AND ROIENT NEEDED. TRANSFERE TO BED WITH MHT AT THIS TIME. CONTINUE PLAN OF CARE
[2019-09-03 21:01] VITALS: BP 150/66
--- NOTE | 2019-09-03 22:45 | NUR ---
NEW IV START PER ORDER. 22 GAUGE IN RIGHT HAND X2 ATTEMPTS. NO SIGNS OF DISTRESS. IV OF 0.45 N/S INFUSING AT 125 ML/HR. PATIENT IS RESTING QUIETLY IN BED WITH EYES CLOSED AT THIS TIME. CONTINUE TO MONITOR.
[2019-09-04 06:08] LABS: ANION GAP 13.4 mmol/L (8-16); CALCIUM 9.1 mg/dL (8.5-10.1); CARBON DIOXIDE 25.3 mmol/L (21.0-32.0); CREATININE - SERUM 1.6 mg/dL (0.6-1.3); POTASSIUM - SERUM 4.7 mmol/L (3.5-5.1)
--- NOTE | 2019-09-04 07:32 | NUR ---
The patient is lying in the bed, she is sleeping. She has inspiratory wheezes. Will monitor behavior. She has a SL in her right inner wrist area. Continue POC
[2019-09-04 09:00] VITALS: BP 124/73
--- NOTE | 2019-09-04 12:33 | PN ---
PATIENT:HOMER VIDES MEDICAL RECORD: [id number] LOCATION:LAURYN Carmona ADMISSION DATE: 08/27/19 PROGRESS NOTE DATE OF SERVICE: 09/03/2019 SUBJECTIVE: The patient's case was discussed with staff. She has no new complaint. OBJECTIVE: The patient is disorganized with pretty limited insight about her condition. She denies that she would seek to harm herself. ASSESSMENT: Dementia. PLAN: Current medicines have been reviewed and will be maintained. I am going to reduce the dose of the Klonopin significantly. TRANSINT:[id number] Voice Confirmation ID: [id number] DOCUMENT ID: [id number] ISABELLE DUCKWORTH MD at 1233 CC: [id number] DICTATION DATE: 09/03/19 1543 AUTOMOBILE INSURANCE CLAIM EXAMINER: 09/03/19 1928 ADM IN [facility] [address] [place] [address]
--- NOTE | 2019-09-04 21:19 | NUR ---
RECEIVED IN HALLWAY OUTSIDE OF NURSES STATION. YELLING OUT. COOPERATIVE WITH CARE AND ASSESSMENT. NO SEXUALLY INAPPROPRIATE BEHAVIORS THIS EVENING. REDIRECT AND REORIENT NEEDED. RESTING IN BED WITH EYES CLOSED AT THIS TIME. CONTINUE PLAN OF CARE.
[2019-09-04 21:55] VITALS: BP 150/68
--- NOTE | 2019-09-05 00:43 | NUR ---
PT SCREAMING OUT AND IS DISRUPTIVE. UNABLE TO REDIRECT. PRN 0.5 MG ATIVAN ADMINISTERED IM TO RIGHT VASTUS LATERALIS. WILL CONTINUE TO MONITOR.
--- NOTE | 2019-09-05 01:01 | NUR ---
PT IS RESTING CALMLY WITH EYES CLOSED. WILL CONTINUE TO MONITOR.
[2019-09-05 08:38] LABS: ANION GAP 14.8 mmol/L (8-16); CALCIUM 8.8 mg/dL (8.5-10.1); CARBON DIOXIDE 23.7 mmol/L (21.0-32.0); CREATININE - SERUM 1.7 mg/dL (0.6-1.3); POTASSIUM - SERUM 5.5 mmol/L (3.5-5.1)
--- NOTE | 2019-09-05 10:49 | NUR ---
Nutrition Follow-up: Diet: Diabetic Mech Soft + Glucerna TID PO intake: ~47% average x last 9 meals Last BM: 09/01/19 x 4d now. WT: 154# (09/01/19); Admit wt: 156# (08/27/19) Significant meds: lantus, SSI. Labs noted. Continue current diet and oral nutrition supplement. Encourage PO intake. Consider increase in bowel regimen to promote BM [id number]. Hopefully appetite will improve with regularity. WT -2# noted. RD following.
--- NOTE | 2019-09-05 15:32 | PN ---
PATIENT:HOMER VIDES MEDICAL RECORD: [id number] LOCATION:LAURYN Carmona ADMISSION DATE: 08/27/19 PROGRESS NOTE DATE OF SERVICE: 09/04/2019 SUBJECTIVE: The patient's case was discussed with staff. She has no new complaint. OBJECTIVE: The patient is somewhat dehydrated, but her level of disorganization has improved. She is more awake and alert, but still under good behavioral control. She had a Depakote level yesterday of 78. ASSESSMENT: Dementia. PLAN: Current medicines have been reviewed and will be maintained. Long-term prognosis is guarded. TRANSINT:[id number] Voice Confirmation ID: [id number] DOCUMENT ID: [id number] ISABELLE DUCKWORTH MD at 1532 CC: [id number] DICTATION DATE: 09/04/19 1236 SEO MARKETING SPECIALIST: 09/04/19 1321 ADM IN [facility] [address] [place] [address]
--- NOTE | 2019-09-05 18:19 | NUR ---
PT HAS RESTED MOST OF THE DAY WITH AWAKENING ONLY AT MEALTIME. NO BEHAVIORAL ISSUES THIS SHIFT
--- NOTE | 2019-09-05 20:58 | NUR ---
RECEIVED PATIENT IN DAYROOM SITTING IN [facility], PATIENT IS NOT HOLDING EYE CONTACT THAT WELL AT THIS TIME OR ACKNOWLEDGING HER NAME BEING CALLED. COMPLIANT WITH MEDS THIS EVENING, NO ADVERSE REACTIONS TO MEDS. WILL FOLLOW POC. IV SITE WITHOUT REDNESS OR TENDERNESS.
[2019-09-05 21:12] VITALS: BP 156/66
[2019-09-06 08:30] VITALS: BP 155/68
--- NOTE | 2019-09-06 08:36 | NUR ---
The patient is asleep in her bed, she is not speaking, she opens her eyes to talk and touch. She has an IV in her right forearm and she is receiving 1/2 NS. Provide prescribed meds. The patient has not shown any sexually inappropriate behavior. Continue POC.
--- NOTE | 2019-09-06 13:49 | PN ---
PATIENT:HOMER VIDES MEDICAL RECORD: [id number] LOCATION:LAURYN Carmona ADMISSION DATE: 08/27/19 PROGRESS NOTE DATE OF SERVICE: 09/05/2019 SUBJECTIVE: The patient's case was discussed with staff. She has no new complaint. OBJECTIVE: The patient did not sleep well last night and has been a little disruptive. She denies intent to harm herself or others. She is only partially oriented. She does have a therapeutic Depakote level from 2 days ago. ASSESSMENT: Dementia. PLAN: Current medicines have been reviewed and will be maintained. Long-term prognosis is guarded. TRANSINT:[id number] Voice Confirmation ID: [id number] DOCUMENT ID: [id number] ISABELLE DUCKWORTH MD at 1349 CC: [id number] DICTATION DATE: 09/05/19 1611 BULK SEALER: 09/06/19 0012 ADM IN [facility] [address] [place] [address]
[2019-09-06 15:25] LABS: ANION GAP 12.6 mmol/L (8-16); CALCIUM 8.9 mg/dL (8.5-10.1); CARBON DIOXIDE 24.2 mmol/L (21.0-32.0); CREATININE - SERUM 1.8 mg/dL (0.6-1.3); POTASSIUM - SERUM 5.8 mmol/L (3.5-5.1)
--- NOTE | 2019-09-06 17:30 | NUR ---
FSBS 88, NO INSULIN REQUIRED.
--- NOTE | 2019-09-06 19:42 | NUR ---
PATIENT HAS POOR INSIGHT. COMPLIANT WITH MEDS, HOLLERING OUT, LABILE, CAN MAKE NEEDS KNOWN. WILL FOLLOW POC
[2019-09-07 02:22] VITALS: BP 149/68
[2019-09-07 07:32] LABS: ANION GAP 12.5 mmol/L (8-16); CREATININE - SERUM 1.8 mg/dL (0.6-1.3); POTASSIUM - SERUM 5.5 mmol/L (3.5-5.1)
--- NOTE | 2019-09-07 08:18 | NUR ---
The patient is awake, but she is groggy. She is in a gen chair. She has not shown any inappropriate behavior today. She did scream this am when she got up from bed. Provide prescribed meds. The patient needs help with eating as she is shakey. Continue POC.
--- NOTE | 2019-09-07 11:31 | NUR ---
The patient is screaming and complaining and making demands. She does not hear and she is not directing. Haldol 2 mg IM provided in her right deltoid.
--- NOTE | 2019-09-07 11:50 | PN ---
PATIENT:HOMER VIDES MEDICAL RECORD: [id number] LOCATION:LAURYN Carmona ADMISSION DATE: 08/27/19 PROGRESS NOTE DATE OF SERVICE: 09/06/2019 SUBJECTIVE: The patient's case was discussed with staff. She has no new complaint. OBJECTIVE: The patient seems a little over sedated, but that is likely related to accumulation of some of the medicine she has been taking and the p.r.n. medications she has received. ASSESSMENT: Dementia. PLAN: The patient will be maintained on current medicines, which I have reviewed. Her long-term prognosis is guarded. TRANSINT:[id number] Voice Confirmation ID: [id number] DOCUMENT ID: [id number] ISABELLE DUCKWORTH MD at 1150 CC: [id number] DICTATION DATE: 09/06/19 1537 CAT CRACKER OPERATOR: 09/06/19 2135 ADM IN [place] [id number] [place] [id number]
--- NOTE | 2019-09-07 12:00 | NUR ---
The patient is sitting in the day room eating. Every few minutes she yells she wants a piece of cake.
--- NOTE | 2019-09-07 14:38 | NUR ---
The patient continues to scream and make demands. Haldol 2 mg IM in left deltoid, will monitor her behavior.
--- NOTE | 2019-09-07 15:23 | NUR ---
The patient continues to yell and make demands. Ativan 0.5 mg IM given in her right deltoid. Will monitor her behavior.
--- NOTE | 2019-09-07 16:20 | NUR ---
The patient is compliant to take her kayexalate after she took her medication she screamed again for no reason.
--- NOTE | 2019-09-07 19:50 | NUR ---
PATIENT RECEIVED IN DAYROOM, LOLA, HARD TO CONSOLE, WILL NOT LISTEN TO REDIRECTON. COMPLIANT WITH MEDS. WILL FOLLOW POC
[2019-09-08 07:02] LABS: ANION GAP 13.7 mmol/L (8-16); BILIRUBIN - TOTAL 0.22 mg/dL (0.2-1.3); CALCIUM 9.2 mg/dL (8.5-10.1); CARBON DIOXIDE 25.5 mmol/L (21.0-32.0); CREATININE - SERUM 1.9 mg/dL (0.6-1.3); POTASSIUM - SERUM 5.2 mmol/L (3.5-5.1); PROTEIN - SERUM 7.2 g/dL (6.4-8.2)
--- NOTE | 2019-09-08 11:00 | NUR ---
PT IS DROWSY AT THIS TIME. CALM AND COOPERATIVE WITH ASSESSMENT. PRESCRIBED MEDS PROVIDED ORDERED. PT CAN BE VERY DEMANDING WITH STAFF AT TIMES. PT SCREAMS OUT FOR NO REASON. HARD TO REDIRECT. PT CAN BE AGGRESSIVE WITH AND WITHOUT CARE. REDIRECT AND REORIENT NEEDED. ATIVAN 0.5MG PO GIVEN PER PRN ORDER FOR AGGRESSION. FALL PRECAUTIONS IN PLACE. WILL CPOC.
[2019-09-08 11:27] VITALS: BP 135/61
--- NOTE | 2019-09-08 13:20 | PN ---
PATIENT:HOMER VIDES MEDICAL RECORD: [id number] LOCATION:LAURYN Carmona ADMISSION DATE: 08/27/19 PROGRESS NOTE DATE OF SERVICE: 09/07/2019 SUBJECTIVE: The patient's case was discussed with staff. She has no new complaint. OBJECTIVE: The patient denies intent to harm herself or others. She generally tolerates her medicines well. She has been fairly agitated, cursing at staff and making verbal threats, but she has not attacked anyone. ASSESSMENT: Dementia. PLAN: Brief supportive and educational interventions were made. Long-term prognosis is guarded. TRANSINT:[id number] Voice Confirmation ID: [id number] DOCUMENT ID: [id number] ISABELLE DUCKWORTH MD at 1320 CC: [id number] DICTATION DATE: 09/07/19 1154 SAP GATHERER: 09/07/19 1341 ADM IN [facility] [address] [place] [id number]
--- NOTE | 2019-09-08 18:01 | NUR ---
ASSISTED PATIENT TO RESTROOM OVER COURSE OF SHIFT. CHANGED CLOTHES SEVERAL TIMES OVER THE SHIFT. PT WAS COMBATIVE WITH CARE AT TIMES.
[2019-09-08 20:00] VITALS: BP 143/71
--- NOTE | 2019-09-08 21:28 | NUR ---
RECEIVED IN HALLWAY OUTSIDE OF NURSES STATION. RESTING IN RECLINER WITH EYES OPEN. CALM AND COOPERATIVE WITH CARE AND ASSESSMENT. NO SEXUALLY INAPPROPRIATE BEHAVIORS. REDIRECT AND REORIENT NEEDED. RESTING IN BED WITH EYES CLOSED AT THIS TIME. CONTINUE PLAN OF CARE.
[2019-09-09 10:55] VITALS: BP 112/72
--- NOTE | 2019-09-09 14:17 | NUR ---
Nutrition Follow-up: Diet: Diabetic, Mech Soft, Glucerna with meals PO intake: ~79% average x last 9 meals Last BM: 09/07/19. WT: 156# (09/08/19); Admit wt: 156# (08/27/19) Significant meds: lantus, SSI. Labs noted: POC Glu 324mg/dL Continue current nutrition regimen. RD following.
--- NOTE | 2019-09-09 14:44 | NUR ---
PT IS AWAKE AND ALERT TO SELF ONLY. CALM AND COOPERATIVE WITH ASSESSMENT. PRESCRIBED MEDS PROVIDED ORDERED. MED COMPLIANT. NO BEHAVIORS NOTED AT THIS TIME. REDIRECT AND REORIENT NEEDED. PT CAN BE VERY DEMANDING WITH STAFF AT TIMES. PT SCREAMS OUT FOR NO REASON AT TIMES. FALL PRECAUTIONS IN PLACE. WILL CPOC.
--- NOTE | 2019-09-09 15:13 | PN ---
PATIENT:HOMER VIDES MEDICAL RECORD: [id number] LOCATION:LAURYN Carmona ADMISSION DATE: 08/27/19 PROGRESS NOTE DATE OF SERVICE: 09/08/2019 SUBJECTIVE: The patient's case was discussed with staff. She has no new complaint. OBJECTIVE: The patient is in good behavioral control. She has limited insight about her condition. She has been fairly agitated. ASSESSMENT: Dementia. PLAN: The patient's Geodon was increased yesterday. I do not think it has had an opportunity to become effective. She will be monitored for clinical changes associated with its use. TRANSINT:[id number] Voice Confirmation ID: [id number] DOCUMENT ID: [id number] ISABELLE DUCKWORTH MD at 1513 CC: [id number] DICTATION DATE: 09/08/19 1324 DESKTOP PUBLISHER: 09/08/19 2308 ADM IN [facility] [address] [place] [address]
[2019-09-09 20:00] VITALS: BP 147/84
--- NOTE | 2019-09-09 20:39 | NUR ---
RECEIVED IN HALLWAY OUTSIDE OF NURSES STATION. RESTING IN RECLINER WITH EYES OPEN. VOMITING PERIODICALLY. SHOWER GIVEN. CALM AND COOPERATIVE WITH CARE AND ASSESSMENT. NO SEXUALLY INAPPROPRIATE BEHAVIORS. REDIRECT AND REORIENT NEEDED. RESTING IN BED WITH EYES CLOSED AT THIS TIME. CONTINUE PLAN OF CARE.
[2019-09-10 08:00] VITALS: BP 160/66
--- NOTE | 2019-09-10 12:46 | NUR ---
PT IS AWAKE AND ALERT TO SELF ONLY. CALM AND COOPERATIVE WITH ASSESSMENT. PRESCRIBED MEDS PROVIDED ORDERED. MED COMPLIANT. NO BEHAVIORS NOTED AT THIS TIME. REDIRECT AND REORIENT NEEDED. FALL PRECAUTIONS IN PLACE. WILL CPOC.
--- NOTE | 2019-09-10 13:51 | PN ---
PATIENT:HOMER VIDES MEDICAL RECORD: [id number] LOCATION:LAURYN Carmona ADMISSION DATE: 08/27/19 PROGRESS NOTE DATE OF SERVICE: 09/09/2019 SUBJECTIVE: The patient's case was discussed with staff. She has no new complaints. OBJECTIVE: The patient is in good behavioral control with limited insight about her condition. She was p.r.n. yesterday because of agitation, but is clearly calmer today. The [facility] has approved her. I think she will be set for discharge as soon as I can have a couple of good days without disruptive behaviors. ASSESSMENT: Dementia. PLAN: Current medicines have been reviewed and will be maintained. Long-term prognosis is guarded. TRANSINT:[id number] Voice Confirmation ID: [id number] DOCUMENT ID: [id number] ISABELLE DUCKWORTH MD at 1351 CC: [id number] DICTATION DATE: 09/09/19 1632 JUNIOR ELECTRICAL ENGINEER: 09/10/19 0040 ADM IN [address] [place] [address]
[2019-09-10 20:35] VITALS: BP 151/64
--- NOTE | 2019-09-10 21:19 | NUR ---
RECEIVED IN DAYROOM. SITTING IN A RECLINING CHAIR WITH EYES CLOSED. RESPONDS TO VOICE. CALM AND COOPERATIVE WITH CARE AND ASSESSMENT. NO SIGNS OF AGGRESSION. REDIRECT AND REORIENT NEEDED. RESTING IN RECLINER EYES CLOSED AT THIS TIME. CONTINUE PLAN OF CARE
--- NOTE | 2019-09-11 08:00 | NUR ---
PT IS RESTING IN RECLINING CHAIR IN DAYROOM WITH PEERS. ALERT TO SELF ONLY. CALM AND COOPERATIVE WITH ASSESSMENT. PRESCRIBED MEDS PROVIDED ORDERED. MED COMPLIANT. NO BEHAVIORS NOTED AT THIS TIME. REDIRECT AND REORIENT NEEDED. FALL PRECAUTIONS IN PLACE. WILL CPOC.
[2019-09-11 09:10] VITALS: BP 126/51
--- NOTE | 2019-09-11 10:12 | PN ---
PATIENT:HOMER VIDES MEDICAL RECORD: [id number] LOCATION:LAURYN Carmona ADMISSION DATE: 08/27/19 PROGRESS NOTE DATE OF SERVICE: 09/10/2019 SUBJECTIVE: The patient's case was discussed with staff. She has no new complaint. OBJECTIVE: The patient is eating and sleeping reasonably well. She seems to have shown some significant improvement with the recent medication changes. ASSESSMENT: Dementia. PLAN: The patient will be maintained on current medicines, which I have reviewed. Her long-term prognosis is guarded. TRANSINT:[id number] Voice Confirmation ID: [id number] DOCUMENT ID: [id number] ISABELLE DUCKWORTH MD at 1012 CC: [id number] DICTATION DATE: 09/10/19 1531 INSIDE ACCOUNT REPRESENTATIVE: 09/10/19 2327 ADM IN [facility] [address] [place] [address]
[2019-09-11 12:59] LABS: ANION GAP 10.6 mmol/L (8-16); CALCIUM 8.8 mg/dL (8.5-10.1); CREATININE - SERUM 1.6 mg/dL (0.6-1.3); POTASSIUM - SERUM 5.6 mmol/L (3.5-5.1)
--- NOTE | 2019-09-11 21:53 | NUR ---
REC'D PATIENT SITTING IN THE DAYROOM WITH EYES CLOSED. AROUSED EASILY. RELATES SHE IS IN "THE NUT HOUSE." ERIKHN ASKED PT IF SHE KNOWS WHY SHE IS HERE SHE RELATED " CAUSE CRAZY PEOPLE HERE BUT I DON'T THINK THEY'RE CRAZY. SALINE LOCK DRY AND INTACT. RELATES SHE WANTS IT OUT. EXPLAINED THE DOCTOR WANTS HER TO HAVE MORE FLUIDS. PT RELATES "I DON'T HAVE A DOCTOR. I QUIT THAT WOMAN A LONG TIME AGO." ADMINISTER MEDS AND MONITOR COMPLIANCE. REDIRECT FOR SEXUALLY INAPPROPRIATE BEHAVIORS. MED COMPLIANT. NO SEXUALLY INAPPROPRIATE BEHAVIOR OBSERVED. SCREAMING WHEN PUT TO BED. CONTINUE POC AND PROVIDE SAFE ENVIRONMENT.
[2019-09-11 22:50] VITALS: BP 137/61
--- NOTE | 2019-09-12 09:05 | NUR ---
The patient is calm, she has not fought with staff, she had a shower this am. weight shifter says she is screaming from time to time, but she has not shwon any sexually inappropriate behavior this am. She is able to self propel in her w/c. Provide prescribed meds. The patient is compliant with meds. Continue POC.
[2019-09-12 09:26] VITALS: BP 129/69
--- NOTE | 2019-09-12 10:18 | NUR ---
Nutrition Follow-up: Diet: Diabetic [facility] Soft + Glucerna TID PO intake: ~78% average x last 9 meals (0-100% range) Last BM: 09/12/19. WT: 156# (09/08/19); Admit wt: 155# (08/27/19) Meds noted: lantus, SSI. Labs noted: K 5.6, GFR 33, POC Glu 84 (this AM) -Will change Glucerna to Suplena due to GFR pt does not needs so much protein. -Will add renal restriction due to elevated K. -Will continue to monitor PO intake, wt trend, and labs. -RD following.
--- NOTE | 2019-09-12 11:44 | PN ---
PATIENT:HOMER VIDES MEDICAL RECORD: [id number] LOCATION:LAURYN Carmona ADMISSION DATE: 08/27/19 PROGRESS NOTE DATE OF SERVICE: 09/11/2019 SUBJECTIVE: The patient's case was discussed with staff. She has no new complaint. OBJECTIVE: The patient is in good behavioral control with limited insight. She has not been sexually inappropriate today. ASSESSMENT: Dementia. PLAN: Current medicines have been reviewed. I anticipate she can be transitioned out of the hospital soon if this level of improvement continues. TRANSINT:[id number] Voice Confirmation ID: [id number] DOCUMENT ID: [id number] ISABELLE DUCKWORTH MD at 1144 CC: [id number] DICTATION DATE: 09/11/19 172 MANAGER IT TRAINING: 09/12/19 0221 ADM IN [facility] [address] [place] [address]
--- NOTE | 2019-09-12 17:27 | NUR ---
DR. LEON ORDERED SODIUM POLYSTYRENE SULFONATE SUSPENSION 30 GM AND BMP IN THE AM. WILL ADMINISTER MEDICATIONS PER ORDER.
[2019-09-12 20:04] VITALS: BP 154/60
--- NOTE | 2019-09-12 23:08 | NUR ---
REC'D PATIENT SITTING IN THE DAYROOM SCREAMING AND YELLING DISRUPTING THE UNIT. THIS IS PATIENT'S BEHAVIOR WHEN SHE WANTS SOMETHING. ADMINISTER MEDS AND MONITOR COMPLIANCE. REDIRECT FOR DISRUPTIVE BEHAVIOR. MED COMPLIANT. WOULD NOT REDIRECT FOR DISRUPTIVE BEHAVIOR. RECEIVED HALDOL AND ATIVAN IM BY Sade GONZALEZ RN PER ORDERS. CONTINUE POC AND PROVIDE SAFE ENVIRONMENT.
--- NOTE | 2019-09-12 23:11 | NUR ---
PRN EFFECTIVE AND IS SITTING IN THE DAYROOM WITH EYES CLOSED.
[2019-09-13 07:50] LABS: ANION GAP 11.6 mmol/L (8-16); CALCIUM 8.5 mg/dL (8.5-10.1); CARBON DIOXIDE 24.4 mmol/L (21.0-32.0); CREATININE - SERUM 1.9 mg/dL (0.6-1.3)
[2019-09-13 07:56] VITALS: BP 164/80
--- NOTE | 2019-09-13 09:51 | NUR ---
The patient is sleepy this am. She had a prn last night. Assisted to dress her. She is in a gen chair in the day room. Provide prescribed meds. The patient is compliant with meds. Continue POC.
--- NOTE | 2019-09-13 14:30 | NUR ---
Flushed the patient's SL and the site began to leak and the patient's arm is edematous. D/C'd the IV site. Attempted two SL, good blood return on both sites, but the saline flush blew the veins. Called Nicole Hendricks RN, left a message requesting her to insert a SL.
--- NOTE | 2019-09-13 15:04 | PN ---
PATIENT:HOMER VIDES MEDICAL RECORD: [id number] LOCATION:LAURYN Carmona ADMISSION DATE: 08/27/19 PROGRESS NOTE DATE OF SERVICE: 09/12/2019 SUBJECTIVE: The patient's case was discussed with staff. She has no new complaint. OBJECTIVE: The patient denies intent to harm herself or others. She generally tolerates her medicines well. She is eating adequately and is less aggressive. ASSESSMENT: Dementia. PLAN: Current medicines and therapies have been reviewed and will be maintained. Long-term prognosis is guarded. Brief supportive and educational interventions were made. TRANSINT:[id number] Voice Confirmation ID: [id number] DOCUMENT ID: [id number] ISABELLE DUCKWORTH MD at 1504 CC: [id number] DICTATION DATE: 09/12/19 182 VICE PRESIDENT GLOBAL DIGITAL MARKETING: 09/12/192000 ADM IN [facility] [address] [place] [address]
--- NOTE | 2019-09-13 20:37 | NUR ---
B.) PT IS ALERT AND ORIENTED TO SELF ONLY. SHE HAS POOR INSIGHT INTO HER SITUATION. SHE IS PLEASANT WITH STAFF. SHE IS RECEIVED IN THE DAY ROOM IN HER CODY CHAIR. SHE HAS PIV IN RIGHT WRIST FOR HER NIGHT INFUSION WITH NO SIGNS OF INFECTION. I.) PROVIDED PM MEDICATIONS. R.) COMPLIANT WITH ALL MEDICATIONS P.) WILL CONTINUE TO MONITOR.
[2019-09-13 20:59] VITALS: BP 115/67
--- NOTE | 2019-09-14 08:07 | PN ---
PATIENT:HOMER VIDES MEDICAL RECORD: [id number] LOCATION:LAURYN Carmona ADMISSION DATE: 08/27/19 PROGRESS NOTE DATE OF SERVICE: 09/13/2019 SUBJECTIVE: The patient's case was discussed with staff. She has no new complaint. OBJECTIVE: The patient is sleepy but arousable. She was very agitated last night and received p.r.n. medication. ASSESSMENT: Dementia. PLAN: The patient's Ativan is going to be discontinued secondary to my suspicion that it is the Ativan that is causing her to have the lingering sedative symptoms. She will be monitored for clinical changes. TRANSINT:[id number] Voice Confirmation ID: [id number] DOCUMENT ID: [id number] ISABELLE DUCKWORTH MD at 0807 CC: [id number] DICTATION DATE: 09/13/19 1611 CRIMINAL DEFENSE LAWYER: 09/13/19 2154 ADM IN [place] [id number] [place] [address]
[2019-09-14 08:30] VITALS: BP 135/64
--- NOTE | 2019-09-14 10:03 | NUR ---
The patient has started screaming and yelling. Asked her what she was yelling about as usually she will tell you she needs to go to the bathroom or wants to go to bed, but this time she screamed "Why are you making me mad, why, why, why?" The patient has a SL in her right wrist. She has poor insight into her situation. Provide prescribed meds. The patient is compliant with meds. Continue POC.
--- NOTE | 2019-09-14 15:30 | NUR ---
The patient awakened and started screaming. Asked her what was wrong, she said "I want some breakfast." Offered her a sandwich, she began screaming again. She is distruptive and upsetting the other patients. Provided Haldol 2 mg IM, see MAR.
[2019-09-14 20:00] VITALS: BP 129/58
--- NOTE | 2019-09-15 03:35 | NUR ---
B) patient is alert and oriented to person and place, restless and combative with care at times, I) Administered scheduled medications as ordered, monitored for safety R) Mediation compliant, refused to allow IV to be started P) Continue plan of care.
--- NOTE | 2019-09-15 06:07 | NUR ---
PT FSBS 59 AT 0600. HAD HER DRINK 240ML OF ORANGE JUICE. WILL CONTINUE TO MONITOR.
--- NOTE | 2019-09-15 07:20 | NUR ---
SITTING IN CODY CHAIR.HAS PULLED TOP OFF AND IS FIDGETING WITH SL IN LEFT AC.CONFUSED AND DISORIENTED.REDRESSED AND ENCOURAGED TO LEAVE SL ALONE.WILL OBSERVE FOR SAFETY AND CHANGES.
[2019-09-15 11:09] VITALS: BP 153/62
--- NOTE | 2019-09-15 14:27 | PN ---
PATIENT:HOMER VIDES MEDICAL RECORD: [id number] LOCATION:LAURYN Carmona ADMISSION DATE: 08/27/19 PROGRESS NOTE DATE OF SERVICE: 09/14/2019 SUBJECTIVE: The patient's case was discussed with staff. She has no new complaint. OBJECTIVE: The patient is tolerating her medicines reasonably well. She is still somewhat sedated. She is more awake now though. ASSESSMENT: Dementia. PLAN: Current medicines have been reviewed and will be maintained. Her long-term prognosis is guarded. TRANSINT:[id number] Voice Confirmation ID: [id number] DOCUMENT ID: [id number] ISABELLE DUCKWORTH MD at 1427 CC: [id number] DICTATION DATE: 09/14/19899 NAIL EXPERT: 09/14/19 09 ADM IN [place] [id number] [place] [address]
[2019-09-15 20:00] VITALS: BP 150/59
--- NOTE | 2019-09-15 20:38 | NUR ---
PT IV IN LEFT AC INFILTRATED. PT REFUSES ANOTHER IV. SHE IS SCREAMING AND SWINGING HER ARMS. WILL CONTINUE TO MONITOR.
--- NOTE | 2019-09-15 21:23 | NUR ---
RECEIVED IN DAYROOM. SITTING IN A RECLINING CHAIR WITH PEERS AT HER SIDE. CALM AND COOPERATIVE WITH CARE AND ASSESSMENT. NO SEXUALLY INAPPROPRIATE BEHAVIORS THIS EVENING. IV OUT. REDIRECT AND REORIENT NEEDED. YELLS OUT AT TIMES. RESTING IN BED WITH EYES CLOSED. CONTINUE PLAN OF CARE
--- NOTE | 2019-09-15 22:38 | NUR ---
PT SCREAMING OUT AND THROWING THINGS IN HER ROOM. UNABLE TO REDIRECT. PRN HALDOL 2MG GIVEN IM FOR UNSAFE PSYCHOTIC BEHAVIOR. WILL CONTINUE TO MONITOR.
--- NOTE | 2019-09-15 23:58 | NUR ---
RESTING QUIETLY IN BED WITH EYES CLOSED.
[2019-09-16 06:50] LABS: ANION GAP 12.9 mmol/L (8-16); CALCIUM 8.8 mg/dL (8.5-10.1); CARBON DIOXIDE 27.1 mmol/L (21.0-32.0); CREATININE - SERUM 1.7 mg/dL (0.6-1.3)
[2019-09-16 09:20] VITALS: BP 152/53
--- NOTE | 2019-09-16 13:13 | PN ---
PATIENT:HOMER VIDES MEDICAL RECORD: [id number] LOCATION:LAURYN Carmona ADMISSION DATE: 08/27/19 PROGRESS NOTE DATE OF SERVICE: 09/15/2019 SUBJECTIVE: The patient's case was discussed with staff. She has no new complaint. OBJECTIVE: The patient denies intent to harm herself or others. She is tolerating her medicines well. She is still sedated. She is eating reasonably well. ASSESSMENT: Dementia. PLAN: Current medicines and therapies have been reviewed and will be maintained. Long-term prognosis is guarded. TRANSINT:[id number] Voice Confirmation ID: [id number] DOCUMENT ID: [id number] ISABELLE DUCKWORTH MD at 1313 CC: [id number] DICTATION DATE: 09/15/19 1431 WARE CARRIER: 09/15/19 1618 ADM IN [facility] [address] [place] [address]
--- NOTE | 2019-09-16 15:00 | NUR ---
PATIENT ALERT AND ORIENTED TO PERSON ONLY. SITTING QUIETLY IN RECLINER. SHE ATE GOOD FOR BREAKFAST, BUT SMALL AMOUNT AT LUNCH. CALM AND COOPERATIVE WITH ASSESSMENT. COMPLIANT WITH MEDICATIONS. REDIRECT AND REORIENT NEEDED. MONITOR FOR SAFETY AND CONTINUE POC.
--- NOTE | 2019-09-16 17:00 | NUR ---
FSBS=52 ORANGE JUICE WITH SUGAR GIVEN. SUPPER TRAY SERVED AND PATIENT ATE EVERYTHING ON HER TRAY. SHE IS TALKING AND SMILING AT NURSE.
[2019-09-16] MEDS ORDERED: NEURONTIN 400400 MG PO (17:18)
[2019-09-16] MEDS ORDERED: GEODON20 MG PO (17:18)
[2019-09-16] MEDS ORDERED: DEPAKOTE500 MG PO (17:18)
--- NOTE | 2019-09-16 17:45 | NUR ---
RECHECKED FSBS=91
[2019-09-16 20:15] VITALS: BP 122/64
--- NOTE | 2019-09-16 20:55 | NUR ---
RECEIVED IN BEDROOM. LAYING IN BED YELLING OUT AT TIMES. NO SIGNS OF AGGRESSION. REDIRECT AND REORIENT NEEDED. CONTINUES TO YELL OUT FROM BED. CONTINUE PLAN OF CARE
--- NOTE | 2019-09-16 21:13 | NUR ---
IV OUT. REFUSES IV PLACEMENT.
[2019-09-17 08:00] VITALS: BP 137/59
--- NOTE | 2019-09-17 08:00 | NUR ---
REC'D PT SITTING IN CHAIR EATING BREAKFAST. NO ACUTE DISTRESS NOTED. PT IS ALERT AND CONFUSED ORIENTED TO SELF ONLY. REDIRECT AND REORIENT NEEDED. PT IS VERY [place]. PT ASSISTED WITH TRANFER 2X. CHAIR ALARM IN PLACE AND ACTIVE. WILL CONT PLAN OF CARE.
--- NOTE | 2019-09-17 09:30 | NUR ---
REPORT CALLED INTO [facility]IG[facility] AT [facility]. PT TOOK ALL AM MEDICATIONS. BELONGINGS PACKED. PAPER COPY SENT WITH PT. PAPERWORK FAXED TO PRISON. PT IS STABLE AT TIME OF DISCHARGE. PT WHEELCHAIR SENT WITH PT. ATTEMPTED TO NOTIFY SISTER Anthony DIAZ. NO ANSWER AT THIS TIME. NO BEHAVIORS NOTED AT ALL.
--- NOTE | 2019-09-17 11:11 | PN ---
PATIENT:HOMER VIDES MEDICAL RECORD: [id number] LOCATION:LAURYN Carmona ADMISSION DATE: 08/27/19 PROGRESS NOTE DATE OF SERVICE: 09/16/2019 SUBJECTIVE: The patient's case was discussed with staff. She has no new complaint. OBJECTIVE: The patient denies intent to harm herself or others. She is more awake and cooperative. She has been eating reasonably well. ASSESSMENT: Dementia. PLAN: The patient's current medicines have been reviewed and will be maintained. She is going to be transitioned out of the hospital tomorrow. Her long-term prognosis is guarded. TRANSINT:[id number] Voice Confirmation ID: [id number] DOCUMENT ID: [id number] ISABELLE DUCKWORTH MD at 1111 CC: [id number] DICTATION DATE: 09/16/191715 JOINER: 09/17/19 0231 ADM IN [place] [id number] [place] [id number]
--- NOTE | 2019-09-18 08:37 | PN ---
PATIENT:HOMER VIDES MEDICAL RECORD: [id number] LOCATION:LAURYN Carmona ADMISSION DATE: 08/27/19 PROGRESS NOTE DATE OF SERVICE: 09/17/2019 SUBJECTIVE: The patient's case was discussed with staff. She has no new complaint. OBJECTIVE: The patient is in relatively good behavioral control. She ate reasonably well yesterday and slept well yesterday. ASSESSMENT: Dementia. PLAN: The patient will be transitioned out of the hospital today. Her long-term prognosis is guarded. Both supportive and educational interventions were made. Followup is to be with her primary care retirement physician. TRANSINT:[id number] Voice Confirmation ID: [id number] DOCUMENT ID: [id number] ISABELLE DUCKWORTH MD at 0837 CC: [id number] DICTATION DATE: 09/17/19 1317 FISH STRINGER ASSEMBLER: 09/17/19 1400 DIS IN 09/17/[address] [facility] [address] [place] [address]
== END 2019-09-17 09:30 | DRG 57 ==
LOC: D.PSYCH 12:39
PROVIDERS: Family Medicine; ADMIT Psychiatry & Neurology Psychiatry; ATTEND Psychiatry & Neurology Psychiatry
DX: G30.9 Alzheimer's disease, unspecified (principal); F02.81 Dementia in other diseases classified elsewhere, unspecified severity, with behavioral disturbance; N18.4 Chronic kidney disease, stage 4 (severe); E87.0 Hyperosmolality and hypernatremia; E11.22 Type 2 diabetes mellitus with diabetic chronic kidney disease; I12.9 Hypertensive chronic kidney disease with stage 1 through stage 4 chronic kidney disease, or unspecified chronic kidney disease; R26.9 Unspecified abnormalities of gait and mobility; D63.1 Anemia in chronic kidney disease; M81.0 Age-related osteoporosis without current pathological fracture; G40.909 Epilepsy, unspecified, not intractable, without status epilepticus; E55.9 Vitamin D deficiency, unspecified; E53.8 Deficiency of other specified B group vitamins; E86.0 Dehydration; E87.5 Hyperkalemia